=== PATIENT | female | born 1940 | race Caucasian/White ===

== ENCOUNTER → 2016-03-06 | Outpatient (REF) | payer MEDICARE, MEDICAID ==
[2016-03-06 14:11] LABS: BASO % 0.5 % (0.0-1.0); EOS # 0.1 K/mm3 (0.0-0.50); EOS % 1.8 % (0.0-3.0); LARGE UNSTAINED CELL # 0.1 K/mm3 (0.0-0.4); LARGE UNSTAINED CELL % 1.3 % (0.0-4.0); LYMPH # 1.7 K/mm3 (1.5-4.5); LYMPH % 22.7 % (24.0-44.0); MEAN CORPUSCULAR HEMOGLOBIN 30.9 pg (27.0-33.0); MEAN CORPUSCULAR HGB CONC 33.7 g/dl (32.0-36.5); MEAN CORPUSCULAR VOLUME 91.8 fl (80.0-96.0); MONO # 0.4 K/mm3 (0.0-0.8); NEUTROPHILS # 5.3 K/mm3 (1.8-7.7); NEUTROPHILS % 68.9 % (36.0-66.0); PLATELET COUNT, AUTOMATED 306 k/mm3 (150-450); RED CELL DISTRIBUTION WIDTH 13.1 % (11.5-14.5); WHITE BLOOD COUNT 7.7 K/mm3 (4.0-10.0)
[2016-03-06 14:59] LABS: ALBUMIN 3.9 GM/DL (3.2-5.2); ALBUMIN/GLOBULIN RATIO 1.15 (1.00-1.93); ALKALINE PHOSPHATASE 120 U/L (45-117); ALT/SGPT 26 U/L (12-78); ANION GAP 9 MEQ/L (8-16); AST/SGOT 17 U/L (15-37); BILIRUBIN,TOTAL 0.3 MG/DL (0.2-1.0); BLOOD UREA NITROGEN 19 MG/DL (7-18); CARBON DIOXIDE LEVEL 31 MEQ/L (21-32); CHLORIDE LEVEL 101 MEQ/L (98-107); CREATININE FOR GFR 0.86 MG/DL (0.55-1.02); GLOMERULAR FILTRATION RATE > 60.0 (>39); GLUCOSE, FASTING 87 MG/DL (83-110); POTASSIUM SERUM 4.4 MEQ/L (3.5-5.1); SODIUM LEVEL 141 MEQ/L (136-145); TOTAL PROTEIN 7.3 GM/DL (6.4-8.2)
== END ==
LOC: M SFHCPLAZ 11:38
PROVIDERS: ATTEND Family Medicine
DX: I10 Essential (primary) hypertension (principal); R73.01 Impaired fasting glucose; E55.9 Vitamin D deficiency, unspecified
CPT/HCPCS: 80053; 82306; 83036; 83970; 85025; G0463

== ENCOUNTER → 2016-07-22 | Outpatient (REF) | payer MEDICARE, MEDICAID ==
[2016-07-22 12:41] LABS: ALBUMIN 3.7 GM/DL (3.2-5.2); ALBUMIN/GLOBULIN RATIO 1.06 (1.00-1.93); ALKALINE PHOSPHATASE 120 U/L (45-117); ALT/SGPT 24 U/L (12-78); ANION GAP 8 MEQ/L (8-16); AST/SGOT 18 U/L (15-37); BILIRUBIN,TOTAL 0.4 MG/DL (0.2-1.0); BLOOD UREA NITROGEN 20 MG/DL (7-18); CALCIUM LEVEL 9.2 MG/DL (8.8-10.2); CARBON DIOXIDE LEVEL 29 MEQ/L (21-32); CHLORIDE LEVEL 102 MEQ/L (98-107); CHOLESTEROL LEVEL 196 MG/DL (<200); CREATININE FOR GFR 0.89 MG/DL (0.55-1.02); GLOMERULAR FILTRATION RATE > 60.0 (>39); GLUCOSE, FASTING 121 MG/DL (83-110); POTASSIUM SERUM 3.9 MEQ/L (3.5-5.1); SODIUM LEVEL 139 MEQ/L (136-145); TOTAL PROTEIN 7.2 GM/DL (6.4-8.2); TRIGLYCERIDES LEVEL 205 MG/DL (<150)
== END ==
LOC: M SFHCPLAZ 10:35
PROVIDERS: ATTEND Family Medicine
DX: R73.01 Impaired fasting glucose (principal); Z79.899 Other long term (current) drug therapy
CPT/HCPCS: 36415; 80053; 80061; 81001; 82043; 82550; 83036; 86140; G0463

== ENCOUNTER → 2016-10-01 | Outpatient (CLI) | payer MEDICARE, MEDICAID ==
[~2016-10-01] MED LIST: ASPI81TA85 PO; CALCTAB68 PO; DIOV320T PO; HYDR25TAB PO; LIPI20TA PO; PROZ20CA11 PO; VITA100072 PO; VITA200015 PO; ZYLO300T4 PO
--- NOTE | 2016-10-01 09:58 | REPMRS ---
Patient History The patient states she has not had a clinical breast exam in over a year. Patient is postmenopausal. Family history of pancreatic cancer in paternal uncle at age 50 or over. Benign stereotatic breast biopsy of the right breast, 2009. Digital Woman Screen Mammo: October 01, 2016 - Exam #: [id number] Bilateral CC and MLO view(s) were taken. Technologist: Lubna Harmon Technologist Prior study comparison: October 05, 2015, digital woman screen mammo performed at [facility]. September 04, 2014, digital woman screen mammo performed at [facility]. FINDINGS: There are scattered fibroglandular densities. There has been no change in the appearance of the mammogram from the prior studies. There is a mild amount of residual fibroglandular tissue which is fairly symmetric. There is no interval development of dominant mass, architectural distortion, or clustered microcalcification suggestive of malignancy. ASSESSMENT: BI-RADS/ACR category 1 mammogram. Negative. Recommendation Routine screening mammogram in 1 year (for women over age 40). This mammogram was interpreted with the aid of an FDA-approved computer-aided dectection system. Electronically Signed By: Riky Vann MD 10/01/16 0958
== END ==
LOC: M WHC 08:56
PROVIDERS: ATTEND Family Medicine
DX: Z12.31 Encounter for screening mammogram for malignant neoplasm of breast (principal); Z78.0 Asymptomatic menopausal state

== ENCOUNTER 2016-12-03 09:16 | Day surgery (SDC) | payer MEDICARE, MEDICAID ==
[~2016-12-03] VITALS: Ht 149.9 cm; Wt 93.0 kg
[~2016-12-03 09:16] MED LIST changes: +ACETAMINOPHEN 325 MG TAB PO PRN; +BSS with VANC/TOB/EPI for EYE CASES IR ONE; +CYCLOPENTOLATE 2% OPHTH SOLN 2ML BTL OS ONE; +LIDOCAINE 3.5 % 1ML OPHTH TOPICAL GEL OU ONE; +OFLOXACIN 0.3 % (OCUFLOX) OPTH SOL 5ML OS ONE; +PHENYLEPHRINE 2.5% OPHTH SOL 2ML OS ONE; +PROPARACAINE 0.5% OPHTH SOL 15ML OS PRN; +TROPICAMIDE 1% OPHTH SOLN 2ML OS ONE
[2016-12-03] MEDS ORDERED: AcetaZOLAMIDE 500 MG ER CAP PO ONE (09:30)
[2016-12-03] MEDS ORDERED: TRIMETHOBENZAMIDE 300 MG CAP PO PRN (09:30)
[2016-12-03] MEDS ORDERED: KETOROLAC 0.5% OPHTH SOLN OS ONE (09:30)
[2016-12-03] MEDS ORDERED: LIDOCAINE 1% SDV 5 ML VIAL As Ordered ONE (10:11)
[2016-12-03] MEDS ORDERED: POVIDONE-IODINE 5% OPHTH PREP SOL 30ML As Ordered ONE (10:11)
[2016-12-03] MEDS ORDERED: TRIAMCINOLONE PRES FR 40 MG/ML 1ML(TRIESENCE)(OR EYE ONLY)(J3300 PER 1MG) As Ordered ONE (10:11)
[2016-12-03] MEDS ORDERED: MOXIFLOXACIN IN BSS 0.25MG/0.25ML INTRACAMERAL INJ (OR EYE ONLY)(J2280) As Ordered ONE (10:12)
[2016-12-03] MEDS ORDERED: HEALON DUET (HEALON 10MG/ML 0.55ML & HEALON ENDOCOAT 30MG/ML 0.85ML) As Ordered ONE (10:12)
[2016-12-03] MEDS ORDERED: fentaNYL 100 MCG/2 ML INJECTION (J3010) As Ordered ONE (10:32)
[2016-12-03] MEDS ORDERED: MIDAZOLAM INJ 2 MG/2 ML VIAL (J2250) As Ordered ONE (10:32)
[2016-12-03 11:20] VITALS: BP 102/50
== END 2016-12-03 11:43 | disposition home or self-care (01) ==
LOC: M SDC 09:16
PROVIDERS: ATTEND Ophthalmology
DX: H25.9 Unspecified age-related cataract (principal); I10 Essential (primary) hypertension; E78.5 Hyperlipidemia, unspecified; G47.30 Sleep apnea, unspecified; Z79.82 Long term (current) use of aspirin; Z79.899 Other long term (current) drug therapy
CPT/HCPCS: 66984; J2250; J2280; J3010; J3300; V2632

== ENCOUNTER → 2017-04-03 | Outpatient (REF) | payer MEDICARE ==
[2017-04-03 12:41] LABS: BASO # 0.1 10^3/uL (0.0-0.2); BASO % 0.7 % (0.0-1.0); EOS # 0.1 10^3/uL (0.0-0.50); EOS % 1.5 % (0.0-3.0); HEMATOCRIT 40.2 % (36.0-47.0); HEMOGLOBIN 13.2 g/dl (12.0-16.0); IMMATURE GRANULOCYTE % 0.4 % (0-3.0); LYMPH # 1.9 10^3/uL (1.5-4.5); MEAN CORPUSCULAR HEMOGLOBIN 30.2 pg (27.0-33.0); MEAN CORPUSCULAR HGB CONC 32.8 g/dl (32.0-36.5); MONO # 0.8 10^3/uL (0.0-0.8); MONO % 8.1 % (0.0-5.0); NEUTROPHILS # 6.4 10^3/uL (1.8-7.7); NEUTROPHILS % 69.3 % (36.0-66.0); PLATELET COUNT, AUTOMATED 306 10^3/uL (150-450); RED BLOOD COUNT 4.37 10^6/uL (4.00-5.40); RED CELL DISTRIBUTION WIDTH 13.3 % (11.5-14.5); WHITE BLOOD COUNT 9.2 10^3/uL (4.0-10.0)
[2017-04-03 12:43] LABS: HEMATOCRIT 40.2 % (36.0-47.0)
[2017-04-03 12:49] LABS: APPEARANCE, URINE HAZY (CLEAR); BACTERIA, URINE AUTO NEGATIVE (NEGATIVE); BILIRUBIN, URINE AUTO NEGATIVE (NEGATIVE); BLOOD, URINE BLOOD NEGATIVE (NEGATIVE); COLOR, URINE YELLOW (YELLOW); GLUCOSE, URINE (UA) AUTO NEGATIVE (NEGATIVE); KETONE, URINE AUTO TRACE mg/dL (NEGATIVE); LEUKOCYTE ESTERASE, URINE AUTO 1+ (NEGATIVE); NITRITE, URINE AUTO NEGATIVE (NEGATIVE); PROTEIN, URINE AUTO NEGATIVE (NEGATIVE); RBC, URINE AUTO 4 /HPF (0-3); SPECIFIC GRAVITY URINE AUTO 1.021 (1.002-1.035); SQUAMOUS EPITHELIAL CELL UR AU 0 /HPF (0-6); UROBILINOGEN, URINE AUTO 0.2 mg/dL (0.0-2.0); WBC, URINE AUTO 14 /HPF (0-3)
[2017-04-03 13:05] LABS: ALBUMIN/GLOBULIN RATIO 1.25 (1.00-1.93); ALKALINE PHOSPHATASE 125 U/L (45-117); ALT/SGPT 27 U/L (12-78); ANION GAP 8 MEQ/L (8-16); AST/SGOT 21 U/L (7-37); BILIRUBIN,TOTAL 0.5 MG/DL (0.2-1.0); BLOOD UREA NITROGEN 19 MG/DL (7-18); CALCIUM LEVEL 9.5 MG/DL (8.8-10.2); CARBON DIOXIDE LEVEL 30 MEQ/L (21-32); CHLORIDE LEVEL 101 MEQ/L (98-107); CREATININE FOR GFR 0.84 MG/DL (0.55-1.30); GLOMERULAR FILTRATION RATE > 60.0 (>39); GLUCOSE, FASTING 90 MG/DL (70-100); POTASSIUM SERUM 3.8 MEQ/L (3.5-5.1); SODIUM LEVEL 139 MEQ/L (136-145); TOTAL PROTEIN 7.2 GM/DL (6.4-8.2)
[2017-04-03 13:12] LABS: VITAMIN B12 LEVEL 1743 PG/ML (247-911)
[2017-04-03 13:18] LABS: MALB URINE SIEMENS 22.4 MG/L; MAU/CREAT RATIO 15.2 MCG/MG (0.0-30.0)
[2017-04-03 13:24] LABS: ESTIMATED AVERAGE GLUCOSE 131 MG/DL (60-110); HEMOGLOBIN A1c 6.2 %
[2017-04-03 14:40] LABS: PRETREATED FOLATE FOR RBCFOL 12.1 NG/ML; RBC FOLATE 632.1 NG/ML (280-791)
[2017-04-04 14:10] LABS: INSULIN LEVEL 13.4 uIU/mL (2.6-24.9)
== END ==
LOC: M SFHCPLAZ 10:39
DX: E53.8 Deficiency of other specified B group vitamins (principal); R73.01 Impaired fasting glucose
CPT/HCPCS: 83525

== ENCOUNTER 2017-07-15 05:52 | Day surgery (SDC) | payer MEDICARE, MEDICAID ==
[2017-07-15] MEDS ORDERED: SLF 3 ML SYR IV ×2 (06:00)
[2017-07-15] MEDS ORDERED: PROPOFOL 200 MG/20 ML VIAL As Ordered (06:28)
[2017-07-15] MEDS ORDERED: fentaNYL 100 MCG/2 ML INJECTION (J3010) As Ordered (06:28)
[2017-07-15] MEDS: LIDOCAINE 3.5 % 1ML OPHTH TOPICAL GEL OU (06:54)
[2017-07-15] MEDS: LIDOCAINE 2% W/EPIN INJ 20ML **PRES FREE As Ordered (07:43)
[2017-07-15] MEDS: POVIDONE-IODINE 5% OPHTH PREP SOL 30ML As Ordered (07:44)
[2017-07-15] MEDS: SODIUM BICARBONATE 8.4% INJ 50MEQ 50 ML VIAL As Ordered (07:44)
[2017-07-15] MEDS: TOBRADEX OPHTH OINT 3.5 GM As Ordered (07:44)
[2017-07-15] MEDS: TETRACAINE 0.5% OPHTH SOLN 4ML As Ordered (08:11)
== END 2017-07-15 09:05 | disposition home or self-care (01) ==
LOC: M SDC 09:05
DX: H02.834 Dermatochalasis of left upper eyelid (principal); H02.831 Dermatochalasis of right upper eyelid; H02.403 Unspecified ptosis of bilateral eyelids; I10 Essential (primary) hypertension; E78.00 Pure hypercholesterolemia, unspecified; F41.9 Anxiety disorder, unspecified; G47.33 Obstructive sleep apnea (adult) (pediatric); L57.0 Actinic keratosis; M75.40 Impingement syndrome of unspecified shoulder; M17.0 Bilateral primary osteoarthritis of knee; M47.816 Spondylosis without myelopathy or radiculopathy, lumbar region; R73.01 Impaired fasting glucose; M85.80 Other specified disorders of bone density and structure, unspecified site; E55.9 Vitamin D deficiency, unspecified; E53.8 Deficiency of other specified B group vitamins; Z79.899 Other long term (current) drug therapy; Z79.82 Long term (current) use of aspirin; Z90.710 Acquired absence of both cervix and uterus
CPT/HCPCS: 15823

== ENCOUNTER 2017-09-04 09:45 | Emergency (ER) | payer MEDICARE, MEDICAID ==
[2017-09-04] MEDS: NORCO, ANEXSIA 5/325MG TABLET (HYDROcodone/ACETAMINOPHEN) PO (10:03)
[2017-09-04 11:42] LABS: BASO % 0.3 % (0.0-1.0); EOS # 0.2 10^3/uL (0.0-0.50); EOS % 1.6 % (0.0-3.0); HEMATOCRIT 38.8 % (36.0-47.0); HEMOGLOBIN 12.9 g/dl (12.0-15.5); IMMATURE GRANULOCYTE % 0.4 % (0-3.0); LYMPH # 2.3 10^3/uL (1.5-4.5); LYMPH % 24.3 % (24.0-44.0); MEAN CORPUSCULAR HEMOGLOBIN 30.5 pg (27.0-33.0); MEAN CORPUSCULAR HGB CONC 33.2 g/dl (32.0-36.5); MEAN CORPUSCULAR VOLUME 91.7 fl (80.0-96.0); MONO # 0.6 10^3/uL (0.0-0.8); MONO % 6.7 % (0.0-5.0); NEUTROPHILS # 6.2 10^3/uL (1.8-7.7); NEUTROPHILS % 66.7 % (36.0-66.0); PLATELET COUNT, AUTOMATED 288 10^3/uL (150-450); RED BLOOD COUNT 4.23 10^6/uL (4.00-5.40); WHITE BLOOD COUNT 9.3 10^3/uL (4.0-10.0)
[2017-09-04] MEDS: MORPHINE 2 MG/ML 1ML SYRINGE (J2270) IV ×2 (11:42→14:09)
[2017-09-04] MEDS: ONDANSETRON 4MG/2ML VIAL (J2405) IV (11:42)
[2017-09-04 12:09] LABS: ANION GAP 9 MEQ/L (8-16); BLOOD UREA NITROGEN 24 MG/DL (7-18); CALCIUM LEVEL 9.2 MG/DL (8.8-10.2); CARBON DIOXIDE LEVEL 27 MEQ/L (21-32); CHLORIDE LEVEL 106 MEQ/L (98-107); CREATININE FOR GFR 0.83 MG/DL (0.55-1.30); GLOMERULAR FILTRATION RATE > 60.0 (>39); GLUCOSE, FASTING 108 MG/DL (70-100); POTASSIUM SERUM 3.6 MEQ/L (3.5-5.1); SODIUM LEVEL 142 MEQ/L (136-145); URIC ACID 3.9 MG/DL (2.6-6.0)
[2017-09-04 12:14] LABS: ERYTHROCYTE SEDIMENTATION RATE 49 mm/hr (0-30)
== END 2017-09-04 16:11 | disposition home or self-care (01) ==
LOC: M ED 09:45
DX: M17.11 Unilateral primary osteoarthritis, right knee (principal); I10 Essential (primary) hypertension; M10.9 Gout, unspecified; F32.9 Major depressive disorder, single episode, unspecified; M51.36 Other intervertebral disc degeneration, lumbar region; Z79.82 Long term (current) use of aspirin; Z79.899 Other long term (current) drug therapy
CPT/HCPCS: J2405

== ENCOUNTER → 2017-09-30 | Outpatient (REF) | payer MEDICARE, MEDICAID ==
[2017-09-30 13:25] LABS: BASO % 0.2 % (0.0-1.0); EOS # 0.1 10^3/uL (0.0-0.50); EOS % 0.9 % (0.0-3.0); HEMATOCRIT 39.2 % (36.0-47.0); HEMOGLOBIN 13.2 g/dl (12.0-15.5); IMMATURE GRANULOCYTE % 0.2 % (0-3.0); LYMPH # 1.9 10^3/uL (1.5-4.5); LYMPH % 21.4 % (24.0-44.0); MEAN CORPUSCULAR HEMOGLOBIN 30.7 pg (27.0-33.0); MEAN CORPUSCULAR HGB CONC 33.7 g/dl (32.0-36.5); MEAN CORPUSCULAR VOLUME 91.2 fl (80.0-96.0); MONO # 0.6 10^3/uL (0.0-0.8); NEUTROPHILS # 6.3 10^3/uL (1.8-7.7); NEUTROPHILS % 70.3 % (36.0-66.0); PLATELET COUNT, AUTOMATED 278 10^3/uL (150-450); RETIC HEMOGLOBIN EQUIVALENT 35.3 pg (24-36); RETICULOCYTE # 70.1 10^9/L (17-77); RETICULOCYTE % 1.6 % (0.5-1.5)
[2017-09-30 13:54] LABS: C REACTIVE PROTEIN QUANTITATIV < 0.30 MG/DL (0.00-0.30); CHOLESTEROL LEVEL 181 MG/DL (<200); CHOLESTEROL RISK RATIO 3.693 (<5); CPK CREATINE PHOSPHOKINASE 57 U/L (26-192); FREE T4 0.96 NG/DL (0.76-1.46); HDL CHOLESTEROL 49 MG/DL (>40); LDL CHOLESTEROL 103.8 MG/DL (<100); NON-HDL-C 132 MG/DL; TRIGLYCERIDES LEVEL 141 MG/DL (<150)
[2017-10-01 14:16] LABS: INSULIN LEVEL 26.8 uIU/mL (2.6-24.9)
== END ==
LOC: M SFHCPLAZ 11:32
DX: E53.8 Deficiency of other specified B group vitamins (principal); E78.2 Mixed hyperlipidemia; R73.01 Impaired fasting glucose
CPT/HCPCS: 82550

== ENCOUNTER → 2017-09-30 | Outpatient (CLI) | payer MEDICARE, MEDICAID | LOC: M WHC 10:26 | DX: Z12.31 Encounter for screening mammogram for malignant neoplasm of breast (principal); Z78.0 Asymptomatic menopausal state; E53.8 Deficiency of other specified B group vitamins; E78.2 Mixed hyperlipidemia; R73.01 Impaired fasting glucose; Z92.89 Personal history of other medical treatment | CPT/HCPCS: 82550 ==

== ENCOUNTER → 2018-02-22 | Outpatient (REF) | payer MEDICARE, MEDICAID ==
[~2018-02-22] MED LIST changes: -ACETAMINOPHEN 325 MG TAB PO PRN; -BSS with VANC/TOB/EPI for EYE CASES IR ONE; -CYCLOPENTOLATE 2% OPHTH SOLN 2ML BTL OS ONE; -LIDOCAINE 3.5 % 1ML OPHTH TOPICAL GEL OU ONE; +NORCOTAB PO; -OFLOXACIN 0.3 % (OCUFLOX) OPTH SOL 5ML OS ONE; -PHENYLEPHRINE 2.5% OPHTH SOL 2ML OS ONE; -PROPARACAINE 0.5% OPHTH SOL 15ML OS PRN; +ROLLMIS2 XX; -TROPICAMIDE 1% OPHTH SOLN 2ML OS ONE; -ZYLO300T4 PO; +ZYLO300T6 PO
[2018-02-22 12:22] LABS: ALBUMIN 3.4 GM/DL (3.2-5.2); ALT/SGPT 22 U/L (12-78); BILIRUBIN,TOTAL 0.3 MG/DL (0.2-1.0); BLOOD UREA NITROGEN 19 MG/DL (7-18); CALCIUM LEVEL 8.5 MG/DL (8.8-10.2); CARBON DIOXIDE LEVEL 27 MEQ/L (21-32); CHLORIDE LEVEL 105 MEQ/L (98-107); CREATININE FOR GFR 0.83 MG/DL (0.55-1.30); GLOMERULAR FILTRATION RATE > 60.0 (>39); GLUCOSE, FASTING 95 MG/DL (70-100); MAGNESIUM LEVEL 1.6 MG/DL (1.8-2.4); POTASSIUM SERUM 3.5 MEQ/L (3.5-5.1); SODIUM LEVEL 141 MEQ/L (136-145); TOTAL PROTEIN 6.4 GM/DL (6.4-8.2); URIC ACID 3.8 MG/DL (2.6-6.0)
== END ==
LOC: M SFHCPLAZ 09:21
PROVIDERS: ATTEND Family Medicine
DX: I10 Essential (primary) hypertension (principal); R73.01 Impaired fasting glucose; M10.9 Gout, unspecified

== ENCOUNTER → 2018-03-19 | Outpatient (CLI) | payer MEDICARE, MEDICAID ==
[~2018-03-19] MED LIST changes: +ACET500T15 PO; +IRBE75TA5 PO
--- NOTE | 2018-03-19 09:59 | REP ---
Clinical: Preoperative assessment . Comparison: 04/03/2017 . Technique: PA and lateral. Findings: The mediastinum and cardiac silhouette are normal. Airway is patent and midline. The lung francisco are clear and without acute consolidation, effusion, or pneumothorax. The skeletal structures are intact and normal. Impression: 1. No acute cardiopulmonary process. Electronically Signed by Pietro Wilson MD 03/19/2018 09:51 A
[2018-03-19 10:15] LABS: HEMATOCRIT 39.9 % (36.0-47.0); HEMOGLOBIN 13.1 g/dl (12.0-15.5); MEAN CORPUSCULAR HEMOGLOBIN 30.1 pg (27.0-33.0); MEAN CORPUSCULAR HGB CONC 32.8 g/dl (32.0-36.5); MEAN CORPUSCULAR VOLUME 91.7 fl (80.0-96.0); PLATELET COUNT, AUTOMATED 299 10^3/uL (150-450); RED BLOOD COUNT 4.35 10^6/uL (4.00-5.40); WHITE BLOOD COUNT 8.3 10^3/uL (4.0-10.0)
[2018-03-19 10:24] LABS: INR 1.07
[2018-03-19 10:46] LABS: ALBUMIN 3.4 GM/DL (3.2-5.2); ALT/SGPT 21 U/L (12-78); BILIRUBIN,TOTAL 0.4 MG/DL (0.2-1.0); BLOOD UREA NITROGEN 12 MG/DL (7-18); CALCIUM LEVEL 8.9 MG/DL (8.8-10.2); CARBON DIOXIDE LEVEL 28 MEQ/L (21-32); CHLORIDE LEVEL 104 MEQ/L (98-107); CREATININE FOR GFR 0.86 MG/DL (0.55-1.30); GLOMERULAR FILTRATION RATE > 60.0 (>39); GLUCOSE, FASTING 111 MG/DL (70-100); POTASSIUM SERUM 3.9 MEQ/L (3.5-5.1); SODIUM LEVEL 140 MEQ/L (136-145)
[2018-03-19 11:51] LABS: ERYTHROCYTE SEDIMENTATION RATE 47 mm/hr (0-30)
--- NOTE | 2018-03-20 17:42 | ECGEPIP ---
Stationary ECG Study [facility] Test Date: 2018-03-19 Pat Name: SERA ARGUETA Department: Room: - Gender: F Garage Laborer: SUJATA : 1940 Requested By: Chandler Michelle Order Number: [id number] Reading MD: Maury Oconnor Measurements Intervals [place] Rate: 69 P: 56 RI: 152 QRS: 5 QRSD: 97 T: 61 QT: 436 QTc: 470 Interpretive Statements SINUS RHYTHM LOW QRS VOLTAGE IN PRECORDIAL LEADS MINIMAL ST DEPRESSION RIGHT VENTRICULAR CONDUCTION DELAY PRIOR TRACING ON 02/17/2014 AT 17:13:49, NO REMARKABLE CHANGES Electronically Signed On 03-20-2018 17:42:14 EST by Maury Oconnor
== END ==
LOC: M LAB 09:12
PROVIDERS: ATTEND Orthopaedic Surgery
DX: Z01.818 Encounter for other preprocedural examination (principal); M17.0 Bilateral primary osteoarthritis of knee

== ENCOUNTER 2018-04-14 09:53 | Inpatient (IN) | payer MEDICARE, MEDICAID ==
[~2018-04-14] VITALS: Ht 149.9 cm; Wt 89.8 kg
[~2018-04-14 09:53] MED LIST changes: +LR 1,000 ML IV ONE
[2018-04-14] MEDS ORDERED: MIDAZOLAM INJ 2 MG/2 ML VIAL (J2250) As Ordered ONE ×3 (10:50→13:18)
[2018-04-14] MEDS ORDERED: PROPOFOL 200 MG/20 ML VIAL As Ordered ONE (10:50)
[2018-04-14] MEDS ORDERED: LIDOCAINE 2% INJ 100 MG/5 ML SDV (FOR ANES.) As Ordered ONE (10:51)
[2018-04-14] MEDS ORDERED: fentaNYL 100 MCG/2 ML INJECTION (J3010) As Ordered ONE ×2 (10:51→11:15)
[2018-04-14] MEDS ORDERED: ceFAZolin 1GM INJ (J0690 PER 500MG) As Ordered ONE (11:27)
[2018-04-14] MEDS ORDERED: BUPIVACAINE LIPOSOME/PF 1.3% 20ML VIAL (13.3MG/ML)(EXPAREL)(C9290 PER1MG) As Ordered ONE (11:27)
[2018-04-14] MEDS ORDERED: TRANEXAMIC ACID 100 MG/ML 10ML VIAL As Ordered ONE (11:27)
[2018-04-14] MEDS ORDERED: EPINEPHrine INJ 1 MG/ML 1ML AMP As Ordered ONE (11:27)
[2018-04-14] MEDS: fentaNYL 100 MCG/2 ML INJECTION (J3010) IV PRN ×2 (11:30→11:32)
[2018-04-14] MEDS: MIDAZOLAM INJ 2 MG/2 ML VIAL (J2250) IV PRN ×2 (11:31→11:33)
--- NOTE | 2018-04-14 11:40 | IPN ---
DATE: 04/14/2018 The patient is seen and examined. She wished to go ahead with a right total knee arthroplasty. She has had significant pain that she has not been able to tolerate and she understands the nature of the procedure and the risks of bleeding, infection, damage to nerves, vessels, persistent pain, wear, loosening, blood clots, medical problems, and among others. A preop clearance was obtained.
[2018-04-14] MEDS ORDERED: PHENYLephrine HCL 500 MCG/5 ML (100MCG/ML) SYRINGE (J2370) As Ordered ONE ×2 (12:32→12:36)
[2018-04-14] MEDS ORDERED: BUPIVACAINE/DEXTROSE 0.75% 2 ML AMP As Ordered ONE (12:33)
[2018-04-14] MEDS ORDERED: ePHEDrine SULFATE 25 MG/5 ML(5MG/ML) SYRINGE As Ordered ONE (13:13)
[2018-04-14] MEDS ORDERED: ONDANSETRON 4MG/2ML VIAL (J2405) As Ordered ONE (13:47)
[2018-04-14] MEDS ORDERED: fentaNYL 100 MCG/2 ML INJECTION (J3010) IV PRN (14:00)
[2018-04-14] MEDS ORDERED: LR 1,000 ML IV SCH (14:00)
[2018-04-14] MEDS ORDERED: ACETAMINOPHEN TAB 650MG DOSE (2X325MG) PO PRN (14:00)
[2018-04-14] MEDS ORDERED: PILL CRUSHER/CUTTER 1 EACH XX PRN (14:00)
[2018-04-14] MEDS ORDERED: ONDANSETRON 4MG/2ML VIAL (J2405) IV PRN ×2 (14:00)
[2018-04-14] MEDS ORDERED: MORPHINE 4 MG/ML 1ML VIAL/SYRINGE (J2270) IV PRN (14:00)
[2018-04-14] MEDS ORDERED: MORPHINE 10 MG/ML 1ML VIAL (J2270) IV PRN (14:00)
[2018-04-14] MEDS ORDERED: PERCOCET 5MG/325MG TAB PO PRN (14:00)
[2018-04-14] MEDS ORDERED: FLEET ENEMA PR PRN (14:00)
[2018-04-14 14:45] VITALS: BP 148/85
--- NOTE | 2018-04-14 14:47 | REP ---
AP LATERAL RIGHT KNEE, TWO VIEWS: HISTORY: Knee replacement. The patient is status post right total knee replacement. There is no acute fracture or dislocation. Subcutaneous air and surgical lori are present in the overlying soft tissue. IMPRESSION: The patient is status post right total knee replacement. There is anatomic alignment. Electronically Signed by Monty Pizano MD 04/14/2018 02:49 P
[2018-04-14 15:15] VITALS: BP 130/68
[2018-04-14 16:15] VITALS: BP 132/72
[2018-04-14 17:15] VITALS: BP 126/65
[2018-04-14] MEDS: ALLOPURINOL 300 MG TAB PO SCH (18:06)
[2018-04-14] MEDS: ATORVASTATIN 20 MG TAB PO SCH (18:06)
[2018-04-14] MEDS: LR 1,000 ML IV SCH (18:07)
[2018-04-14] MEDS: VITAMIN D 1,000 INTERNATIONAL UNITS TABLET PO SCH (18:07)
[2018-04-14] MEDS: ASPIRIN 81 MG ENTERIC TAB PO SCH (18:07)
[2018-04-14] MEDS: FLUoxetine 20 MG CAP PO SCH (18:07)
[2018-04-14 18:15] VITALS: BP 129/68
[2018-04-14] MEDS: MORPHINE 4 MG/ML 1ML VIAL/SYRINGE (J2270) IV PRN ×2 (18:54→22:30)
[2018-04-14 22:00] VITALS: BP 150/88
[2018-04-15 02:00] VITALS: BP 132/79
[2018-04-15] MEDS: LR 1,000 ML IV SCH (03:20)
[2018-04-15] MEDS: MORPHINE 4 MG/ML 1ML VIAL/SYRINGE (J2270) IV PRN (04:34)
[2018-04-15 06:00] VITALS: BP 141/67
[2018-04-15 06:38] LABS: HEMATOCRIT 34.7 % (36.0-47.0); HEMOGLOBIN 11.5 g/dl (12.0-15.5); MEAN CORPUSCULAR HEMOGLOBIN 29.9 pg (27.0-33.0); MEAN CORPUSCULAR HGB CONC 33.1 g/dl (32.0-36.5); MEAN CORPUSCULAR VOLUME 90.4 fl (80.0-96.0); PLATELET COUNT, AUTOMATED 288 10^3/uL (150-450); RED BLOOD COUNT 3.84 10^6/uL (4.00-5.40)
[2018-04-15] MEDS: ACETAMINOPHEN 500 MG TAB PO SCH ×3 (06:43→21:28)
[2018-04-15 07:06] LABS: BLOOD UREA NITROGEN 17 MG/DL (7-18); CALCIUM LEVEL 8.7 MG/DL (8.8-10.2); CARBON DIOXIDE LEVEL 29 MEQ/L (21-32); CHLORIDE LEVEL 103 MEQ/L (98-107); CREATININE FOR GFR 0.86 MG/DL (0.55-1.30); GLOMERULAR FILTRATION RATE > 60.0 (>39); GLUCOSE, FASTING 115 MG/DL (70-100); POTASSIUM SERUM 3.8 MEQ/L (3.5-5.1); SODIUM LEVEL 140 MEQ/L (136-145)
--- NOTE | 2018-04-15 07:44 | RO ---
DATE OF PROCEDURE: 04/14/2018 PREOPERATIVE DIAGNOSIS: Right knee osteoarthritis. POSTOPERATIVE DIAGNOSIS: Right knee osteoarthritis. PROCEDURE: Right total knee arthroplasty using an Attune size4 femur, size 3 tibia, 6 polyethylene, 32 patellar button. This is a posterior stabilized knee rotating platform. SURGEON: Chandler Michelle MD TRAFFIC RATE ANALYST: VINNY Mcdonald ANESTHESIA: Spinal ESTIMATED BLOOD LOSS: Less than 50. COMPLICATIONS: None. INDICATIONS: This is a 77-year-old woman has had gradually worsening knee pain. She was not able to tolerate it and wished to go ahead with a knee replacement. She has advanced arthritis. She understood the nature of this, the risks of bleeding, infection, damage to nerves, vessels, persistent pain, wear loosening, blood clots, medical problems, , among others. She had tried multiple conservative things. DESCRIPTION OF PROCEDURE: The patient was taken to the operating room, placed supine position after spinal anesthesia was induced. The right lower extremity was prepped and draped the usual sterile fashion. Time-out was performed. Tourniquet was deflated and a longitudinal incision was made over the anterior aspect the knee. Sharp dissection was carried down through subcutaneous tissue. I then performed a medial parapatellar arthrotomy and a medial release per routine, removed any osteophytes. Then, used a canal initiating reamer on the femoral side followed by the intramedullary guide set at 5 degrees of valgus and a 9 mm thickness cut. This was pinned in place by the mobile sales assistant and then the cutting block was secured. I also removed the cutting block 2 mm proximal because she did have a flexion contracture. A saw was used to remove the bone. I then sized to be a 4, pinned this in place on the end of the femur and the cutting block was secured size 4 and the remaining cuts were made protecting soft tissues. I then released the attachment just on the anterior aspect the posterior cruciate ligament (PCL) so I could place the PCL retractor and the retractors were placed around the tibial side. The tibial alignment guide was placed in the appropriate amount of valgus and posterior slope and the proximal tibia cut was made about 4 mm off the low side, which was the medial side. I removed the excess bone. It was evident that the PCL was now deficient and I think largely due to her flexion contracture and deformity. So I decided go ahead with a box cut. I did use the tibial sided retractor to protect the tibial surface. The box cut was placed, secured in place and the remaining three cuts were made removing the bone. I also used a franchise consultant on either side of the knee and removed soft tissue and osteophytes from either side. I prepared the tibia. A size 3 tray fit very nicely. This was pinned in place, drilled, broached and then the trial components were placed and the trial components fit very nicely. I used a spacer block and decided on a size 6 for the polyethylene. The knee was put through a range of motion after the trial components were placed and I was very pleased with the alignment stability. I did not have to do any further release. The patella was then freehand cut removing about 6 or 7 mm of bone. It was relatively small. Patella sized to be a 32. The drill holes were placed in the patella and on the end of the femur. Patella tracked very nicely. The mobile sales assistant prepared the bone cement in the modern technique on the back table. I irrigated the bony surfaces and dried them carefully. We cemented on the tibial tray, followed by the femoral component. Removed excess bone cement. Placed the polyethylene. Reduced the knee. Brought it out in extension and cemented on the patella. Held this in place with a clamp. We removed all excess bone cement, irrigated copiously as I had multiple times prior to this, and placed the Exparel solution in the deep tissue. Also placed the tranexamic acid (TXA). I then did a final deep irrigation, closed the deep layer with interrupted #1 Vicryl suture, followed by running Stratafix suture and a watertight closure was placed. I put the knee through range of motion after I was sure the cement had hardened and made sure that there was no clicking, catching and that the alignment was good, stability was excellent. I then irrigated and closed the subcu with #2-0 Vicryl, the skin with lori. Sterile dressing was applied. Tourniquet was deflated and she was taken to recovery room in stable condition. There were no known complications. The plan will be routine postop. The mobile sales assistant was instrumental in holding retractors and assisting in mixing the bone cement, assisting in wound closure, making one of the distal femoral cuts under my direct supervision.
[2018-04-15] MEDS: MIRALAX *UNIT DOSE* 17GM PACKET PO SCH (08:17)
[2018-04-15] MEDS: MOM 30ML SUSPENSION UDC PO SCH (08:17)
[2018-04-15] MEDS: ALLOPURINOL 300 MG TAB PO SCH (08:17)
[2018-04-15] MEDS: RIVAROXABAN 10 MG TAB (XARELTO) PO SCH (08:17)
[2018-04-15] MEDS: VITAMIN D 1,000 INTERNATIONAL UNITS TABLET PO SCH (08:18)
[2018-04-15] MEDS: FLUoxetine 20 MG CAP PO SCH (08:18)
[2018-04-15] MEDS: ATORVASTATIN 20 MG TAB PO SCH (08:18)
[2018-04-15] MEDS: ASPIRIN 81 MG ENTERIC TAB PO SCH (08:18)
[2018-04-15] MEDS: IRBESARTAN 150 MG TAB PO SCH (08:19)
[2018-04-15] MEDS ORDERED: TRAM50TA2 PO (08:39)
[2018-04-15] MEDS ORDERED: XARE10TA PO (08:39)
[2018-04-15] MEDS ORDERED: ACET-683 PO (08:44)
--- NOTE | 2018-04-15 09:44 | IPNPDOC ---
Subjective Date Seen The patient was seen on 04/15/18. Subjective Chief Complaint/HPI OA knee Events since last encounter s/p RIGHT knee TKA. Planned DC to [facility] in am. denies c/o. States pain is well controlled. Has been OOB General: Reports: Normal Appetite; Denies: Chills, Night Sweats, Fatigue, Malaise Cardiovascular: Denies: Chest Pain, Palpitations, Orthopnea, Paroxysmal Noc. Dyspnea, Edema, Lt Headedness, Other Symptoms Gastrointestinal: Denies: Nausea, Vomiting, Abdominal Pain, Diarrhea, Constipation Genitourinary: Denies: Dysuria, Frequency, Incontinence, Retention Objective Physical Examination General Exam: Positive: Alert, No Acute Distress Neck Exam: Positive: Supple; Negative: JVD, thyromegaly Chest Exam: Positive: Clear to auscultation, Normal air movement Heart Exam: Positive: Rate Normal, Regular Rhythm, Normal S1, Normal S2; Negative: Murmurs, Rubs Abdomen Exam: Positive: Normal bowel sounds, Soft; Negative: Tenderness, Hepatospenomegaly Extremity Exam: Positive: Normal pulses; Negative: Clubbing, Cyanosis, Edema Skin Exam: Positive: Nl turgor and temperature; Negative: Rash, Breakdown Psych Exam: Positive: Mental status NL, Mood NL, Oriented x 3 Assessment /Plan Problems (1) Knee pain Status: Acute Problem Text: s/p Right TKA. planned rehab at [facility]. dc in am. (2) HTN (hypertension) Status: Chronic Response to Treatment: Stable Discussed With: Patient Problem Text: On home dose of Irbesartan 75 mg 1/2 tab po bid. Add on home dose of HCTZ 12.5 mg po daily. (3) Depressive disorder Status: Chronic Response to Treatment: Stable Discussed With: Patient Problem Text: On home dose Fluoxetine 20 mg po daily (4) MINNIE on CPAP Status: Chronic Response to Treatment: Stable Discussed With: Patient Problem Text: encouraged to have CPAP while in hospital and [facility] (5) Hyperlipidemia Status: Chronic Response to Treatment: Stable Problem Text: Continu home dose atorvastatin 40 mg po daily Plan/VTE VTE Prophylaxis Ordered?: Yes (Xarelto) VS, I&O, 24H, Fishbone Vital Signs/I&O Vital Signs Date Time Temp Pulse Resp B/P (MAP) Pulse Ox O2 Delivery O2 Flow Rate FiO2 2/28/19 08:19 132/60 04/15/18 06:00 98.3 80 20 92 I&O- Last 24 Hours up to 6 AM 04/15/18 06:00 Intake Total 2540 ml Output Total 1699 ml Balance 841 ml Laboratory Data 24H LABS Laboratory Tests 2 04/15/18 06:08: Nucleated Red Blood Cells % (auto) 0.0, Anion Gap 8, Glomerular Filtration Rate > 60.0, Blood Urea Nitrogen 17, Creatinine 0.86, Sodium Level 140, Potassium Level 3.8, Chloride Level 103, Carbon Dioxide Level 29, Calcium Level 8.7L CBC/BMP Laboratory Tests 04/15/18 06:08 Red Blood Count 3.84 L, Mean Corpuscular Volume 90.4, Mean Corpuscular Hemoglobin 29.9, Mean Corpuscular Hemoglobin Concent 33.1, Red Cell Distribution Width 14.1, Calcium Level 8.7 L Nancy WattsP Apr 15, 2018 09:44
[2018-04-15 10:00] VITALS: BP 114/55
[2018-04-15] MEDS: hydroCHLOROthiazide 12.5 MG CAPSULE PO SCH (10:40)
[2018-04-15] MEDS: traMADol 50 MG TAB PO PRN ×3 (13:51→22:40)
[2018-04-15 14:00] VITALS: BP 117/66
[2018-04-15 22:00] VITALS: BP 132/64
[2018-04-16] MEDS: ACETAMINOPHEN 500 MG TAB PO SCH (05:26)
[2018-04-16] MEDS: traMADol 50 MG TAB PO PRN (05:27)
[2018-04-16 05:58] LABS: HEMATOCRIT 31.4 % (36.0-47.0); HEMOGLOBIN 10.3 g/dl (12.0-15.5); MEAN CORPUSCULAR HGB CONC 32.8 g/dl (32.0-36.5); MEAN CORPUSCULAR VOLUME 91.5 fl (80.0-96.0); PLATELET COUNT, AUTOMATED 245 10^3/uL (150-450); RED BLOOD COUNT 3.43 10^6/uL (4.00-5.40); WHITE BLOOD COUNT 12.8 10^3/uL (4.0-10.0)
[2018-04-16 06:00] VITALS: BP 114/58
[2018-04-16 06:22] LABS: BLOOD UREA NITROGEN 18 MG/DL (7-18); CALCIUM LEVEL 8.1 MG/DL (8.8-10.2); CARBON DIOXIDE LEVEL 31 MEQ/L (21-32); CHLORIDE LEVEL 106 MEQ/L (98-107); CREATININE FOR GFR 0.76 MG/DL (0.55-1.30); GLOMERULAR FILTRATION RATE > 60.0 (>39); GLUCOSE, FASTING 125 MG/DL (70-100); POTASSIUM SERUM 3.8 MEQ/L (3.5-5.1); SODIUM LEVEL 142 MEQ/L (136-145)
[2018-04-16] MEDS: MIRALAX *UNIT DOSE* 17GM PACKET PO SCH (08:17)
[2018-04-16] MEDS: RIVAROXABAN 10 MG TAB (XARELTO) PO SCH (08:18)
[2018-04-16] MEDS: FLUoxetine 20 MG CAP PO SCH (08:18)
[2018-04-16] MEDS: hydroCHLOROthiazide 12.5 MG CAPSULE PO SCH (08:18)
[2018-04-16] MEDS: VITAMIN D 1,000 INTERNATIONAL UNITS TABLET PO SCH (08:18)
[2018-04-16] MEDS: ASPIRIN 81 MG ENTERIC TAB PO SCH (08:18)
[2018-04-16] MEDS: ALLOPURINOL 300 MG TAB PO SCH (08:18)
[2018-04-16] MEDS: MOM 30ML SUSPENSION UDC PO SCH (08:18)
[2018-04-16] MEDS: ATORVASTATIN 20 MG TAB PO SCH (08:18)
[2018-04-16 08:19] VITALS: BP 105/52
[2018-04-16] MEDS: IRBESARTAN 150 MG TAB PO SCH (08:19)
[2018-04-16] MEDS ORDERED: CYANOCOBALAMIN 500 MCG TAB PO SCH (09:00)
--- NOTE | 2018-04-20 15:52 | DSES ---
DATE OF ADMISSION: 04/14/2018 DATE OF DISCHARGE: 04/16/2018 ADMITTING DIAGNOSIS: Osteoarthritis, right knee. OTHER DIAGNOSES: 1. Hypertension. 2. Depression. 3. Sleep apnea. 4. Elevated lipids. DISCHARGE DIAGNOSIS: Arthritis, right knee, status post right total knee arthroplasty. OPERATION PERFORMED: Right total knee arthroplasty. HISTORY: This a pleasant 77-year-old female patient with progressively worsening left knee pain and stiffness. She failed to improve with conservative management. She was admitted for elective knee replacement on the right side. HOSPITAL COURSE: The patient was admitted on day of surgery and underwent a right total knee arthroplasty, which was uneventful. She did well in the postoperative period. In terms of her right knee, though, she did struggle with the requirements of the physical therapy. Due to her struggles with physical therapy, it was thought best for her to be in a shelter facility for further intensive physical therapy, so she was discharged to the shelter facility. On day of discharge, her pain was controlled. She was weightbearing as tolerated on her right lower extremity. She will move her right knee to prevent stiffness. She use thromboembolic deterrent (MIKE) stockings for 30 days postoperatively for deep vein thrombosis (DVT) prophylaxis. She will also use Xarelto per the protocol for DVT prophylaxis. She will followup in our office in 10-14 days for surgical followup. She will resume her preoperative medications and diet. She was given instructions to include, but not limited to, wound monitoring activity limitations. Please refer to the medical record further detail.
== END 2018-04-16 10:45 | DRG 470 ==
LOC: M SDC 09:53 → M MS5PR 11:15 → EDSTATUS 12:00 → M MS5PR 14:35
PROVIDERS: ADMIT Orthopaedic Surgery; ATTEND Orthopaedic Surgery
PROC: 0SRC0J9 Replacement of Right Knee Joint with Synthetic Substitute, Cemented, Open Approach (ICD-10-PCS; principal; 2018-04-14 12:00)
DX: M17.11 Unilateral primary osteoarthritis, right knee (principal); I10 Essential (primary) hypertension; M10.9 Gout, unspecified; E66.9 Obesity, unspecified; Z79.899 Other long term (current) drug therapy; E53.8 Deficiency of other specified B group vitamins; G47.33 Obstructive sleep apnea (adult) (pediatric); M51.36 Other intervertebral disc degeneration, lumbar region

== ENCOUNTER → 2018-04-27 | Outpatient (REF) | payer MEDICARE, MEDICAID ==
[~2018-04-27] MED LIST changes: +ACET-683 PO; -LR 1,000 ML IV ONE; +TRAM50TA2 PO; +XARE10TA PO
[2018-04-27 10:34] LABS: HEMATOCRIT 31.8 % (36.0-47.0); HEMOGLOBIN 10.4 g/dl (12.0-15.5); MEAN CORPUSCULAR HEMOGLOBIN 29.7 pg (27.0-33.0); MEAN CORPUSCULAR HGB CONC 32.7 g/dl (32.0-36.5); MEAN CORPUSCULAR VOLUME 90.9 fl (80.0-96.0); PLATELET COUNT, AUTOMATED 368 10^3/uL (150-450); WHITE BLOOD COUNT 11.4 10^3/uL (4.0-10.0)
[2018-04-27 11:00] LABS: BLOOD UREA NITROGEN 16 MG/DL (7-18); CALCIUM LEVEL 8.7 MG/DL (8.8-10.2); CARBON DIOXIDE LEVEL 28 MEQ/L (21-32); CHLORIDE LEVEL 104 MEQ/L (98-107); CREATININE FOR GFR 0.73 MG/DL (0.55-1.30); GLOMERULAR FILTRATION RATE > 60.0 (>39); GLUCOSE, FASTING 99 MG/DL (70-100); POTASSIUM SERUM 3.8 MEQ/L (3.5-5.1); SODIUM LEVEL 140 MEQ/L (136-145)
== END ==
PROVIDERS: ATTEND Family Medicine
DX: Z47.1 Aftercare following joint replacement surgery (principal); Z96.651 Presence of right artificial knee joint; Z79.899 Other long term (current) drug therapy

== ENCOUNTER → 2018-05-11 | Outpatient (REF) | payer MEDICARE, MEDICAID ==
[2018-05-11 12:13] LABS: BASO % 0.3 % (0.0-1.0); EOS % 1.2 % (0.0-3.0); HEMOGLOBIN 12.1 g/dl (12.0-15.5); LYMPH # 2.4 10^3/uL (1.5-4.5); LYMPH % 23.2 % (24.0-44.0); MEAN CORPUSCULAR HEMOGLOBIN 29.9 pg (27.0-33.0); MEAN CORPUSCULAR HGB CONC 32.7 g/dl (32.0-36.5); MEAN CORPUSCULAR VOLUME 91.4 fl (80.0-96.0); MONO # 0.7 10^3/uL (0.0-0.8); MONO % 7.1 % (0.0-5.0); NEUTROPHILS # 6.9 10^3/uL (1.8-7.7); NEUTROPHILS % 67.6 % (36.0-66.0); PLATELET COUNT, AUTOMATED 389 10^3/uL (150-450); RED BLOOD COUNT 4.05 10^6/uL (4.00-5.40); WHITE BLOOD COUNT 10.2 10^3/uL (4.0-10.0)
[2018-05-11 12:14] LABS: EOS # 0.1 10^3/uL (0.0-0.50)
[2018-05-11 12:43] LABS: ALBUMIN 3.7 GM/DL (3.2-5.2); ALT/SGPT 17 U/L (12-78); BILIRUBIN,TOTAL 0.5 MG/DL (0.2-1.0); BLOOD UREA NITROGEN 20 MG/DL (7-18); CALCIUM LEVEL 9.3 MG/DL (8.8-10.2); CARBON DIOXIDE LEVEL 26 MEQ/L (21-32); CHLORIDE LEVEL 105 MEQ/L (98-107); CREATININE FOR GFR 0.84 MG/DL (0.55-1.30); GLOMERULAR FILTRATION RATE > 60.0 (>39); GLUCOSE, FASTING 95 MG/DL (70-100); NT-PRO BNP 213 PG/ML (<450); SODIUM LEVEL 139 MEQ/L (136-145); TOTAL PROTEIN 7.1 GM/DL (6.4-8.2); TROPONIN I < 0.02 NG/ML (< 0.10)
== END ==
LOC: M SFHCPLAZ 11:20
PROVIDERS: ATTEND Family Medicine
DX: I10 Essential (primary) hypertension (principal); E11.9 Type 2 diabetes mellitus without complications; L57.0 Actinic keratosis; M75.40 Impingement syndrome of unspecified shoulder; F32.9 Major depressive disorder, single episode, unspecified; M10.9 Gout, unspecified; M17.0 Bilateral primary osteoarthritis of knee; G47.00 Insomnia, unspecified; M47.816 Spondylosis without myelopathy or radiculopathy, lumbar region; E78.2 Mixed hyperlipidemia; G47.33 Obstructive sleep apnea (adult) (pediatric); M85.80 Other specified disorders of bone density and structure, unspecified site; E55.9 Vitamin D deficiency, unspecified; E53.8 Deficiency of other specified B group vitamins

== ENCOUNTER → 2018-06-15 | Outpatient (RCR) | payer MEDICARE, MEDICAID ==
[~2018-06-15] MED LIST changes: +HYDR-3715 PO; -NORCOTAB PO; +VITA100018 PO; -VITA100072 PO
== END ==
LOC: M PT 05-31 10:53
PROVIDERS: ATTEND Orthopaedic Surgery
DX: Z47.89 Encounter for other orthopedic aftercare (principal); M17.11 Unilateral primary osteoarthritis, right knee

== ENCOUNTER 2018-06-24 11:28 | Outpatient (RCR) | payer MEDICARE, MEDICAID | END 2018-07-16 | LOC: M PT 11:28 | PROVIDERS: ATTEND Orthopaedic Surgery | DX: Z47.89 Encounter for other orthopedic aftercare (principal); M17.11 Unilateral primary osteoarthritis, right knee ==

== ENCOUNTER → 2018-08-06 | Outpatient (REF) | payer MEDICARE, MEDICAID ==
[2018-08-06 13:41] LABS: ALBUMIN 3.4 GM/DL (3.2-5.2); ALT/SGPT 21 U/L (12-78); BILIRUBIN,TOTAL 0.3 MG/DL (0.2-1.0); BLOOD UREA NITROGEN 18 MG/DL (7-18); CALCIUM LEVEL 9.2 MG/DL (8.8-10.2); CARBON DIOXIDE LEVEL 29 MEQ/L (21-32); CHLORIDE LEVEL 106 MEQ/L (98-107); CREATININE FOR GFR 0.83 MG/DL (0.55-1.30); FREE T4 0.78 NG/DL (0.76-1.46); GLOMERULAR FILTRATION RATE > 60.0 (>39); GLUCOSE, FASTING 106 MG/DL (70-100); MAGNESIUM LEVEL 2.5 MG/DL (1.8-2.4); NT-PRO BNP 147 PG/ML (<450); POTASSIUM SERUM 3.8 MEQ/L (3.5-5.1); SODIUM LEVEL 143 MEQ/L (136-145); TOTAL PROTEIN 6.9 GM/DL (6.4-8.2)
== END ==
LOC: M SFHCPLAZ 09:44
PROVIDERS: ATTEND Family Medicine
DX: I10 Essential (primary) hypertension (principal); R73.01 Impaired fasting glucose

== ENCOUNTER → 2018-10-01 | Outpatient (CLI) | payer MEDICARE, MEDICAID ==
--- NOTE | 2018-10-01 11:51 | REPMRS ---
Patient History The patient states she has not had a clinical breast exam in over a year. Family history of pancreatic cancer at age 50 or over in paternal uncle. Benign stereotatic breast biopsy of the right breast, 2009. No Hormone Replacement Therapy Digital Woman Screen Mammo: October 01, 2018 - Exam #: [id number] Bilateral CC and MLO view(s) were taken. Technologist: Lubna Harmon, Technologist Prior study comparison: September 30, 2017, bilateral digital woman screen mammo performed at [facility]. October 01, 2016, digital woman screen mammo performed at [facility]. October 05, 2015, digital woman screen mammo performed at [facility]. FINDINGS: The breast tissue is almost entirely fat. There is a needle biopsy marker clip again noted on the right. Stable right breast nodules are seen. There has been no change in the appearance of the mammogram from the prior studies. There is no interval development of dominant mass, architectural distortion, or grouped microcalcification typical of malignancy. 3-D tomosynthesis shows no additional findings. Assessment: BI-RADS/ACR category 2 mammogram. Benign Findings. Recommendation Routine screening mammogram of both breasts in 1 year (for women over age 40). This patient's Lifetime Breast Cancer RIsk is estimated at 1.0%. This mammogram was interpreted with the aid of an FDA-approved computer-aided dectection system. Electronically Signed By: Klever Alonso MD 10/01/18 8146
== END ==
LOC: M WHC 10:14
PROVIDERS: ATTEND Family Medicine
DX: Z12.31 Encounter for screening mammogram for malignant neoplasm of breast (principal); Z80.0 Family history of malignant neoplasm of digestive organs

== ENCOUNTER → 2018-11-17 | Outpatient (CLI) | payer MEDICARE, MEDICAID ==
[~2018-11-17] MED LIST changes: +CALC1TAB63 PO
[2018-11-17 09:53] LABS: HEMATOCRIT 38.5 % (36.0-47.0); HEMOGLOBIN 12.7 g/dl (12.0-15.5); MEAN CORPUSCULAR HEMOGLOBIN 30.9 pg (27.0-33.0); MEAN CORPUSCULAR VOLUME 93.7 fl (80.0-96.0); PLATELET COUNT, AUTOMATED 274 10^3/uL (150-450); RED BLOOD COUNT 4.11 10^6/uL (4.00-5.40); WHITE BLOOD COUNT 8.2 10^3/uL (4.0-10.0)
[2018-11-17 10:04] LABS: INR 1.12; PROTHROMBIN TIME 14.1 SECONDS (11.8-14.0)
[2018-11-17 10:23] LABS: ALBUMIN 3.5 GM/DL (3.2-5.2); ALT/SGPT 24 U/L (12-78); BILIRUBIN,TOTAL 0.4 MG/DL (0.2-1.0); BLOOD UREA NITROGEN 24 MG/DL (7-18); CALCIUM LEVEL 9.4 MG/DL (8.8-10.2); CARBON DIOXIDE LEVEL 27 MEQ/L (21-32); CHLORIDE LEVEL 109 MEQ/L (98-107); CREATININE FOR GFR 0.88 MG/DL (0.55-1.30); GLOMERULAR FILTRATION RATE > 60.0 (>39); GLUCOSE, FASTING 125 MG/DL (70-100); POTASSIUM SERUM 4.1 MEQ/L (3.5-5.1); SODIUM LEVEL 144 MEQ/L (136-145); TOTAL PROTEIN 6.8 GM/DL (6.4-8.2)
[2018-11-17 10:24] LABS: ERYTHROCYTE SEDIMENTATION RATE 34 mm/hr (0-30)
--- NOTE | 2018-11-17 15:37 | REP ---
Chest x-ray: Two views. History: Left knee arthritis. Comparison chest x-ray: March 19, 2018. Findings: The lungs are symmetrically aerated and free of infiltrate. Heart is not enlarged. The thoracic aorta is tortuous and calcific. There are degenerative changes in the thoracic spine. The pleural angles are sharp. Pulmonary vasculature is not increased. Impression: No active cardiopulmonary disease. Electronically Signed by Jose Alonso MD 11/17/2018 04:07 P
--- NOTE | 2018-11-18 00:47 | ECGEPIP ---
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
== END ==
LOC: M LAB 09:20
PROVIDERS: ATTEND Orthopaedic Surgery
DX: Z01.818 Encounter for other preprocedural examination (principal)

== ENCOUNTER 2018-11-29 08:22 | Inpatient (IN) | payer MEDICARE, MEDICAID ==
--- NOTE | 2018-11-26 09:12 | HPE ---
DATE OF ANTICIPATED ADMISSION: 11/29/2018 ATTENDING PHYSICIAN: Dr. Chandler Michelle CHIEF COMPLAINT: Left knee pain and stiffness. HISTORY: This is a 78-year-old female patient with progressively worsening left knee pain and stiffness who has failed to improve with conservative treatment. She has continued pain with weightbearing activities in the left knee and has consented for left knee total arthroplasty with Dr. Chandler Michelle for her continued symptoms. ALLERGIES: NO KNOWN DRUG ALLERGIES. CURRENT MEDICATIONS: - vitamin D - Voltaren 1% gel - cyanocobalamin 500 mcg one p.o. daily - fluoxetine 40 mg one p.o. daily - allopurinol 300 mg one p.o. daily - aspirin 81 mg one p.o. daily - Tylenol 325 two by mouth as needed every 4 hours - irbesartan 75 mg half a tablet one by mouth twice a day - hydrochlorothiazide 25 mg half tablet p.o. daily - calcium 600 mg one p.o. daily - atorvastatin 40 mg one p.o. daily PAST MEDICAL HISTORY: Hypertension, bilateral knee osteoarthritis, osteoporosis, type 2 diabetes, diet-controlled, gout, obesity, allergic rhinitis , B12 deficiency, lumbar degenerative disk disease, obstructive sleep apnea. PAST SURGICAL HISTORY: Right breast biopsy, bilateral carpal tunnel release, ROBERTO-BSO for non cancerous reason, right and left cataract removal, right total knee arthroplasty March 2018. FAMILY HISTORY: Noncontributory. SOCIAL HISTORY: The patient is a nonsmoker, does not use alcohol. REVIEW OF SYSTEMS: Denies fever, chills, chest pain, shortness of breath, nausea, vomiting, diarrhea. Reports discomfort in the left knee with weightbearing activities. PHYSICAL EXAMINATION: Vitals: Height 58.5 inches, weight 200 pounds, temperature 98.7, blood pressure 127/89, pulse 62, respirations 10. Normocephalic, atraumatic. Neck is supple and nontender with no lymphadenopathy or jugular venous distention (JVD). S1, S2 auscultated with no murmurs, rubs or gallops. Breathing is nonlabored. Abdomen is soft, nontender. Left lower extremity shows intact range of motion. There is no overlying rashes, skin is intact. She has intact neurovascular status is a left lower extremity. 2+ dorsalis pedis, posterior tibialis pulses. Chest x-ray: No active cardiopulmonary disease. EKG: Sinus rhythm with low QRS voltage in precordial leads and nonspecific T-wave abnormalities. LABORATORY DATA: PT 14.1, INR 1.12, white count 8.2, red count 4.11, hemoglobin 12.7, hematocrit 38.5, ESR 14, BUN 24, creatinine 0.88. Medical optimization by Dr. Maher reviewed today on chart. IMPRESSION: Symptomatic left knee degenerative changes. PLAN: Consented for left total knee arthroplasty with Dr. Chandler Michelle.
[2018-11-29] VITALS (7 sets, daily range): BP systolic 111–148; BP diastolic 66–86
[~2018-11-29] VITALS: Ht 149.9 cm; Wt 90.6 kg
[~2018-11-29 08:22] MED LIST changes: +LIDOCAINE 2% INJ 100 MG/5 ML SDV (FOR ANES.) As Ordered ONE; +LR 1,000 ML IV ONE; +MIDAZOLAM INJ 2 MG/2 ML VIAL (J2250) IV SCH; +ONDANSETRON 4MG/2ML VIAL (J2405) As Ordered ONE; +PROPOFOL 200 MG/20 ML VIAL As Ordered ONE; +ceFAZolin SOD 2 GM in IV 1 EA IV ONE; +fentaNYL 100 MCG/2 ML INJECTION (J3010) As Ordered ONE; +fentaNYL 100 MCG/2 ML INJECTION (J3010) IV SCH
--- NOTE | 2018-11-29 09:21 | IPN ---
DATE: 11/29/2018 Patient seen and examined. She wishes to go ahead with a left total knee arthroplasty. She is aware of the nature and the risks including bleeding, infection, damage to nerves, vessels, persistent pain, wear loosening, blood clots, medical problems, , among others. She has been through a fairly recent knee replacement on the other side.
[2018-11-29] MEDS ORDERED: TRANEXAMIC ACID 100 MG/ML 10ML VIAL As Ordered ONE (09:53)
[2018-11-29] MEDS ORDERED: EPINEPHrine INJ 1 MG/ML 1ML AMP As Ordered ONE (09:53)
[2018-11-29] MEDS ORDERED: ceFAZolin 1GM INJ (J0690 PER 500MG) As Ordered ONE (09:53)
[2018-11-29] MEDS ORDERED: BUPIVACAINE LIPOSOME/PF 1.3% 20ML VIAL (13.3MG/ML)(EXPAREL)(C9290 PER1MG) As Ordered ONE (09:53)
[2018-11-29] MEDS ORDERED: MIDAZOLAM INJ 2 MG/2 ML VIAL (J2250) As Ordered ONE (10:02)
[2018-11-29] MEDS ORDERED: fentaNYL 100 MCG/2 ML INJECTION (J3010) As Ordered ONE (10:02)
[2018-11-29] MEDS ORDERED: PHENYLephrine HCL 500 MCG/5 ML (100MCG/ML) SYRINGE (J2370) As Ordered ONE (11:24)
[2018-11-29] MEDS ORDERED: ePHEDrine SULFATE 25 MG/5 ML(5MG/ML) SYRINGE As Ordered ONE (11:24)
[2018-11-29] MEDS ORDERED: PROPOFOL 200 MG/20 ML VIAL As Ordered ONE ×2 (11:24→12:05)
[2018-11-29] MEDS ORDERED: ROPIvacaine 0.5% 30 ML INJECTION (J2795 PER 1MG) ONE (12:45)
[2018-11-29] MEDS ORDERED: EPINEPHrine INJ 1 MG/ML 1ML AMP ONE (12:45)
[2018-11-29] MEDS ORDERED: MORPHINE 4 MG/ML 1ML VIAL/SYRINGE (J2270) IV PRN ×2 (13:00)
[2018-11-29] MEDS ORDERED: FLEET ENEMA PR PRN (13:00)
[2018-11-29] MEDS ORDERED: fentaNYL 100 MCG/2 ML INJECTION (J3010) IV PRN (13:00)
[2018-11-29] MEDS: LR 1,000 ML IV SCH (13:00)
[2018-11-29] MEDS ORDERED: LR 1,000 ML IV SCH (13:00)
[2018-11-29] MEDS ORDERED: ONDANSETRON 4MG/2ML VIAL (J2405) IV PRN ×2 (13:00)
[2018-11-29] MEDS ORDERED: NORCO, ANEXSIA 5/325MG TABLET (HYDROcodone/ACETAMINOPHEN) PO PRN (13:00)
[2018-11-29] MEDS ORDERED: PERCOCET 5MG/325MG TAB PO PRN (13:00)
[2018-11-29] MEDS ORDERED: METOCLOPRAMIDE INJ 10MG/2ML VIAL (J2765) IV PRN (13:00)
[2018-11-29] MEDS ORDERED: ACETAMINOPHEN TAB 650MG DOSE (2X325MG) PO PRN (13:00)
--- NOTE | 2018-11-29 13:11 | RO ---
DATE OF PROCEDURE: 11/29/2018 PREOPERATIVE DIAGNOSIS: Left knee osteoarthritis. POSTOPERATIVE DIAGNOSIS: Left knee osteoarthritis. PROCEDURE: Left total knee arthroplasty using DePuy Attune rotating platform posterior stabilized size 3 femur and size 3 tibia, 5 polyethylene tray, 32 patellar button. SURGEON: Chandler Michelle MD CORN DETASSELER: VINNY Posey ANESTHESIA: Spinal. ESTIMATED BLOOD LOSS: Less than 50. COMPLICATIONS: None. PROCEDURE: The patient was taken to taken to the operating room and placed in supine position after spinal anesthesia was induced. The left lower extremity was prepped and draped in the usual sterile fashion. Time-out was performed. A longitudinal incision was made over the anterior aspect of the knee. Sharp dissection was carried down through subcutaneous tissue. A medial parapatellar arthrotomy was performed per routine. Everted the patella. Removed some osteophytes and flexed the knee up. Used the canal initiating reamer on the femoral side, followed by the intramedullary guide. This was set at 5 degrees of valgus and 9 mm cut. This was pinned in place and I moved the cutting black block back two more millimeters due to a flexion contracture. The patient did have significant preoperative stiffness and she is aware that, that was often predictive of post-op motion. Once the distal femoral cut was made, I then sized the femur to be a 3. Drill holes were placed at the end of the femur, cutting block secured and remaining cuts were made. I prepared the tibia. Tibial alignment guide was then placed in appropriate amount of valgus and posterior slope and pinned this in place and made the proximal tibia cut removing about 4 mm off the low side. I then used a street engineer to remove soft tissue from either side of the knee and osteophytes. She did have an intact posterior cruciate ligament (PCL). So, I went ahead and prepared the tibial surface. I had also used a spacer block and felt that a 5 or 6 would be appropriate. I prepared the sulcus cut on the femur and I had trialed the cruciate-retaining system and felt that it was too tight in flexion. The poly was spitting out and there was not adequate roll back. The PCL cutting guide was then secured on the femur and the remaining three cuts were made. I felt this would improve the range of motion. I then resized and retried the components and a size 5 polyethylene fit very nicely. We had excellent extension and excellent stability in flexion/extension. Excellent alignment. I then freehand cut the patella removing about 7 mm of bone. Drilled the patella and the femur and the 32 patellar button tracked very nicely. The assistant manager pt prepared the bone cement. I irrigated copiously, injected the Exparel in the deep tissues. I then dried the bony surfaces, cemented on the tibia, followed by the femur. The polyethylene was then inserted, which was a 5 thickness. The patellar button was cemented on. I removed all excess bone cement. I then irrigated copiously, placed the tranexamic acid (TXA) in the deep tissues and repaired the deep layer with #1 Vicryl suture, followed by running Stratafix suture. The patellar clamp was removed once cement was hard. Final deep irrigation was performed before I finished the final deep closure. I then irrigated, closed subcu with #2-0 Vicryl and the skin with lori. A tourniquet was deflated. Sterile dressing was applied. She was taken to recovery room in stable condition. There were no known complications. Plan be routine post-op. The assistant manager pt was instrumental in holding retractors, assisted in mixing the bone cement and in wound closure.
--- NOTE | 2018-11-29 13:32 | REP ---
LEFT KNEE: Two views. HISTORY: Postop evaluation. FINDINGS: The patient is status post left knee arthroplasty. Anterior skin lori are seen. Periarticular soft tissue swelling and soft tissue emphysema are seen. Arthroplasty components appear well aligned with respect to each other and their [place] bones. IMPRESSION: Status post left knee arthroplasty. Electronically Signed by Jose lAonso MD 11/29/2018 01:57 P
[2018-11-29] MEDS: NORCO, ANEXSIA 5/325MG TABLET (HYDROcodone/ACETAMINOPHEN) PO PRN ×2 (15:21→18:55)
[2018-11-29] MEDS: ceFAZolin SOD 2 GM in IV 1 EA IV SCH (18:54)
[2018-11-29] MEDS: MORPHINE 15 MG SA TAB PO SCH (19:58)
[2018-11-29] MEDS ORDERED: GLUCAGON FOR INJ 1 MG VIAL (J1610) SC PRN (20:00)
[2018-11-29] MEDS ORDERED: DEXTROSE 50% 50 ML SYRINGE IV PRN (20:00)
[2018-11-29] MEDS ORDERED: GLUCOSE 4 GM CHEW TABLET PO PRN (20:00)
--- NOTE | 2018-11-29 20:01 | CR.PDOC ---
General Date of Consultation: Nov 29, 2018 Consultation REASON FOR CONSULTATION/CHIEF COMPLAINT: Physical evaluation HISTORY OF PRESENT ILLNESS: Patient 78 years old female with past medical histor y of Hypertension, bilateral knee osteoarthritis, osteoporosis, type 2 diabetes, diet-controlled, gout, obesity, allergic rhinitis , B12 deficiency, lumbar degenerative disk disease, obstructive sleep apnea presented hospital for planned left knee replacement. The surgery was done on 11/29/18. Patient tolerated surgery well. Patient denies fever, chills, nausea, shortness of breath, palpitations, vomiting, diarrhea or dysuria ALLERGIES: Please see below. HOME MEDICATIONS: Please see below. PAST MEDICAL HISTORY:Hypertension, bilateral knee osteoarthritis, osteoporosis, type 2 diabetes, diet-controlled, gout, obesity, allergic rhinitis , B12 deficiency, lumbar degenerative disk disease, obstructive sleep apnea. PAST SURGICAL HISTORY: Right breast biopsy, bilateral carpal tunnel release, ROBERTO-BSO for non cancerous reason, right and left cataract removal, right total knee arthroplasty March 2018. FAMILY HISTORY: Mother: from skin cancer SOCIAL HISTORY: Tobacco use: Negative ETOH: Negative Illicit drug use: Negative IV drug use: Negative REVIEW OF SYSTEMS: 10 point review of system is negative except listed above PHYSICAL EXAMINATION: VITAL SIGNS: Please see below. Normocephalic, atraumatic. Neck is supple and nontender with no lymphadenopathy or jugular venous distention (JVD). S1, S2 auscultated with no murmurs, rubs or gallops. Breathing is nonlabored. Abdomen is soft, nontender. Extremity: Dressing intact on the left knee, no cyanosis, pulses preserved bilaterally on lower extremities LABORATORY DATA: Please see below. ASSESSMENT/PLAN: Patient 78 years old female with past medical history of Hypertension, bilateral knee osteoarthritis, osteoporosis, type 2 diabetes, diet-controlled, gout, obesity, allergic rhinitis , B12 deficiency, lumbar d egenerative disk disease, obstructive sleep apnea presented hospital for planned left knee replacement. The surgery was done on 11/29/18. Status post left knee replacement Anticoagulation per surgical team Continue pain management Hypertension Blood pressures under control Continue home regimen Obstructive sleep apnea I recommended to bring CPAP from home Diabetes Insulin sliding scale Diabetes diet B12 deficiency Continue B12 vitamin supplementation Vital Signs/I&O Vital Signs Date Time Temp Pulse Resp B/P (MAP) Pulse Ox O2 Delivery O2 Flow Rate FiO2 11/29/18 18:55 18 10/14/19 17:23 97.9 75 140/79 (99) 95 11/29/18 16:12 2.0 Allergies Coded Allergies: No Known Allergies (Unverified , 11/29/18) Home Medications Scheduled Acetaminophen (Acetaminophen) 500 Mg Tab, 1,000 MG PO Q8H for 5 Days, #40 Allopurinol (Zyloprim) 300 Mg Tab, 300 MG PO DAILY, (Reported) Atorvastatin Calcium (Lipitor) 20 Mg Tab, 40 MG PO DAILY, (Reported) Calcium Carbonate/Vitamin D3 (Calcium 600-Vit D3 400 Tablet) 1 Each Tablet, 1 TAB PO DAILY, (Reported) Cholecalciferol (Vitamin D3) (Vitamin D3) 2,000 Unit Tab, 2,000 UNIT PO DAILY, (Reported) Cyanocobalamin (Vitamin B-12) (Vitamin B-12) 1,000 Mcg Tab, 1,000 MCG PO DAILY, (Reported) Fluoxetine HCl (Prozac) 20 Mg Cap, 40 MG PO DAILY, (Reported) Hydrochlorothiazide (Hydrochlorothiazide) 25 Mg Tab, 12.5 MG PO DAILY, (Reported) Irbesartan (Irbesartan) 75 Mg Tab, 0.5 TAB PO BID for 30 Days, #30 (Reported) JHON CARY DO Nov 29, 2018 20:01
[2018-11-29] MEDS ORDERED: LOSARTAN 25 MG TAB PO SCH (21:00)
[2018-11-30] MEDS: LR 1,000 ML IV SCH (02:20)
[2018-11-30] MEDS: NORCO, ANEXSIA 5/325MG TABLET (HYDROcodone/ACETAMINOPHEN) PO PRN ×5 (02:46→22:29)
[2018-11-30] MEDS: ceFAZolin SOD 2 GM in IV 1 EA IV SCH (02:46)
[2018-11-30 03:05] VITALS: BP 104/51
[2018-11-30 06:24] LABS: HEMATOCRIT 31.2 % (36.0-47.0); HEMOGLOBIN 10.2 g/dl (12.0-15.5); MEAN CORPUSCULAR HEMOGLOBIN 30.6 pg (27.0-33.0); MEAN CORPUSCULAR HGB CONC 32.7 g/dl (32.0-36.5); MEAN CORPUSCULAR VOLUME 93.7 fl (80.0-96.0); PLATELET COUNT, AUTOMATED 220 10^3/uL (150-450); RED BLOOD COUNT 3.33 10^6/uL (4.00-5.40); WHITE BLOOD COUNT 11.5 10^3/uL (4.0-10.0)
[2018-11-30 06:29] VITALS: BP 102/51
[2018-11-30 06:45] LABS: BLOOD UREA NITROGEN 19 MG/DL (7-18); CALCIUM LEVEL 8.6 MG/DL (8.8-10.2); CARBON DIOXIDE LEVEL 28 MEQ/L (21-32); CHLORIDE LEVEL 107 MEQ/L (98-107); GLOMERULAR FILTRATION RATE > 60.0 (>39); GLUCOSE, FASTING 134 MG/DL (70-100); MAGNESIUM LEVEL 1.6 MG/DL (1.8-2.4); POTASSIUM SERUM 3.9 MEQ/L (3.5-5.1); SODIUM LEVEL 140 MEQ/L (136-145)
[2018-11-30] MEDS: HumaLOG INSULIN (NovoLOG) PER UNIT SC SCH ×3 (07:30→17:12)
[2018-11-30] MEDS: ATORVASTATIN 20 MG TAB PO SCH (08:28)
[2018-11-30] MEDS: MOM 30ML SUSPENSION UDC PO SCH (08:28)
[2018-11-30] MEDS: ALLOPURINOL 300 MG TAB PO SCH (08:29)
[2018-11-30] MEDS: CYANOCOBALAMIN 500 MCG TAB PO SCH (08:29)
[2018-11-30] MEDS: FLUoxetine 20 MG CAP PO SCH (08:29)
[2018-11-30] MEDS: SENOKOT S TAB PO SCH ×2 (08:29→20:40)
--- NOTE | 2018-11-30 08:29 | IPNPDOC ---
Subjective Date Seen The patient was seen on 11/30/18. Subjective Chief Complaint/HPI Had fair amount of pain in left knee overnight. No other complaints Constitutional: Denies: Chills, Fever Pulmonary: Denies: Dyspnea, Cough Cardiovascular: Denies: Chest Pain, Palpitations, Orthopnea Gastrointestinal: Reports: Nausea (mild); Denies: Vomiting, Abdominal Pain, Diarrhea, Constipation Objective Physical Examination General Exam: Positive: Alert (sitting up in chair, bright, alert oriented, N AD), No Acute Distress Chest Exam: Positive: Clear to auscultation; Negative: Rales, Rhonchi, Wheezing Heart Exam: Positive: Rate Normal, Regular Rhythm Abdomen Exam: Positive: Normal bowel sounds, Soft; Negative: Tenderness Extremity Exam: Positive: Other (sequentials BL, Knee knee bandged); Negative: Edema Assessment /Plan Problems (1) HTN (hypertension) Status: Chronic Problem Text: BP on low side this am Hold HCTZ and Losartan for now (2) MINNIE on CPAP Status: Chronic Problem Text: Non-compliant with BIPAP. She did not bring her BIPAP as directed because "why would I bring it?. I don't use it at home anyway and I'm not going to use it here" Risk of non-compliance discussed - She is aware "Dr. Maher already read me the riot act over not wearing it" (3) Depressive disorder Status: Chronic Response to Treatment: Stable (4) Hypomagnesemia Status: Acute Problem Text: add oral mag Plan/VTE VTE Prophylaxis Ordered?: Yes (Per ortho) VS, I&O, 24H, Fishbone Vital Signs/I&O Vital Signs Date Time Temp Pulse Resp B/P (MAP) Pulse Ox O2 Delivery O2 Flow Rate FiO2 11/30/18 06:29 99.4 77 19 102/51 (68) 97 11/29/18 16:12 2.0 I&O- Last 24 Hours up to 6 AM 11/30/18 06:00 Intake Total 3565 ml Output Total 1050 ml Balance 2515 ml Laboratory Data 24H LABS Laboratory Tests 2 11/30/18 06:03: Nucleated Red Blood Cells % (auto) 0.0, Anion Gap 5L, Glomerular Filtration Rate > 60.0, Blood Urea Nitrogen 19H, Creatinine 0.90, Sodium Level 140, Potassium Level 3.9, Chloride Level 107, Carbon Dioxide Level 28, Calcium Level 8.6L, Magnesium Level 1.6L CBC/BMP Laboratory Tests 11/30/18 06:03 Red Blood Count 3.33 L, Mean Corpuscular Volume 93.7, Mean Corpuscular Hemoglobin 30.6, Mean Corpuscular Hemoglobin Concent 32.7, Red Cell Distribution Width 13.8, Calcium Level 8.6 L MONA BALL PA-C Nov 30, 2018 08:29
[2018-11-30] MEDS: MIRALAX *UNIT DOSE* 17GM PACKET PO SCH (08:30)
[2018-11-30] MEDS ORDERED: hydroCHLOROthiazide 12.5 MG CAPSULE PO SCH (09:00)
[2018-11-30] MEDS: MORPHINE 15 MG SA TAB PO SCH ×2 (09:49→20:40)
[2018-11-30] MEDS: MAGNESIUM OXIDE 400 MG TAB (MAG-OX) PO SCH ×2 (09:49→20:40)
[2018-11-30 10:00] VITALS: BP 108/58
[2018-11-30 14:00] VITALS: BP 105/60
[2018-11-30] MEDS: RIVAROXABAN 10 MG TAB (XARELTO) PO SCH (17:17)
[2018-11-30 20:09] VITALS: BP 105/58
[2018-12-01] MEDS: NORCO, ANEXSIA 5/325MG TABLET (HYDROcodone/ACETAMINOPHEN) PO PRN ×3 (06:41→23:56)
[2018-12-01 06:46] VITALS: BP 124/70
[2018-12-01 07:00] LABS: BLOOD UREA NITROGEN 19 MG/DL (7-18); CALCIUM LEVEL 8.4 MG/DL (8.8-10.2); CARBON DIOXIDE LEVEL 30 MEQ/L (21-32); CHLORIDE LEVEL 105 MEQ/L (98-107); CREATININE FOR GFR 0.71 MG/DL (0.55-1.30); GLOMERULAR FILTRATION RATE > 60.0 (>39); GLUCOSE, FASTING 117 MG/DL (70-100); MAGNESIUM LEVEL 2.3 MG/DL (1.8-2.4); POTASSIUM SERUM 3.7 MEQ/L (3.5-5.1); SODIUM LEVEL 139 MEQ/L (136-145)
[2018-12-01] MEDS ORDERED: HYDR-3713 PO (07:39)
[2018-12-01] MEDS ORDERED: XARE10TA PO (07:39)
[2018-12-01] MEDS: FLUoxetine 20 MG CAP PO SCH (08:05)
[2018-12-01] MEDS: MIRALAX *UNIT DOSE* 17GM PACKET PO SCH (08:05)
[2018-12-01] MEDS: CYANOCOBALAMIN 500 MCG TAB PO SCH (08:05)
[2018-12-01] MEDS: HumaLOG INSULIN (NovoLOG) PER UNIT SC SCH ×3 (08:05→17:30)
[2018-12-01] MEDS: ALLOPURINOL 300 MG TAB PO SCH (08:05)
[2018-12-01] MEDS: MAGNESIUM OXIDE 400 MG TAB (MAG-OX) PO SCH (08:06)
[2018-12-01] MEDS: ATORVASTATIN 20 MG TAB PO SCH (08:06)
[2018-12-01] MEDS: MOM 30ML SUSPENSION UDC PO SCH (08:06)
[2018-12-01] MEDS: SENOKOT S TAB PO SCH ×2 (08:07→20:06)
[2018-12-01] MEDS: MORPHINE 15 MG SA TAB PO SCH ×2 (08:07→20:07)
--- NOTE | 2018-12-01 08:30 | IPNPDOC ---
Subjective Date Seen The patient was seen on 12/01/18. Subjective Chief Complaint/HPI Still with significant pain in left knee. No other complaints Constitutional: Denies: Chills, Fever Pulmonary: Denies: Dyspnea, Cough Cardiovascular: Denies: Chest Pain, Palpitations Gastrointestinal: Denies: Nausea, Vomiting, Abdominal Pain, Diarrhea, Con stipation Objective Physical Examination General Exam: Positive: Alert (sitting up in chair, bright, alert oriented, NAD), No Acute Distress Chest Exam: Positive: Clear to auscultation; Negative: Rales, Rhonchi, Wheezing Heart Exam: Positive: Rate Normal, Regular Rhythm Abdomen Exam: Positive: Normal bowel sounds, Soft; Negative: Tenderness Extremity Exam: Positive: Other (sequentials BL, Knee knee bandged); Negative: Edema Assessment /Plan Problems (1) HTN (hypertension) Status: Chronic Problem Text: HCTZ and Losartan on hold for borderline low BP. BP improved today but not high. Would hold antihypertensives another day. (2) MINNIE on CPAP Status: Chronic Problem Text: Non-compliant with BIPAP. She did not bring her BIPAP as directed because "why would I bring it?. I don't use it at home anyway and I'm not going to use it here" Risk of non-compliance discussed - She is aware "Dr. Maher already read me the riot act over not wearing it (3) Depressive disorder Status: Chronic Response to Treatment: Stable (4) Hypomagnesemia Status: Resolved Problem Text: add oral mag Plan/VTE VTE Prophylaxis Ordered?: Yes (Per ortho) VS, I&O, 24H, [facility] Vital Signs/I&O Vital Signs Date Time Temp Pulse Resp B/P (MAP) Pulse Ox O2 Delivery O2 Flow Rate FiO2 12/01/18 08:07 16 12/01/18 06:46 98.0 85 124/70 (88) 100 11/29/18 16:12 2.0 I&O- Last 24 Hours up to 6 AM 12/01/18 06:00 Intake Total 1290 ml Output Total 550 ml Balance 740 ml Laboratory Data 24H LABS Laboratory Tests 2 11/30/18 11:33: Bedside Glucose (Misc Panel) 150H 11/30/18 16:50: Bedside Glucose (Misc Panel) 133H 11/30/18 20:13: Bedside Glucose (Misc Panel) 152H 12/01/18 06:20: Anion Gap 4L, Glomerular Filtration Rate > 60.0, Calcium Level 8.4L, Magnesium Level 2.3 CBC/BMP Laboratory Tests 12/01/18 06:20 MONA BALL PA-C Dec 01, 2018 08:30
[2018-12-01 14:02] VITALS: BP 107/55
[2018-12-01] MEDS: RIVAROXABAN 10 MG TAB (XARELTO) PO SCH (17:29)
[2018-12-01 20:14] VITALS: BP 121/70
[2018-12-02] MEDS: NORCO, ANEXSIA 5/325MG TABLET (HYDROcodone/ACETAMINOPHEN) PO PRN ×4 (04:26→18:13)
[2018-12-02 06:18] VITALS: BP 89/57
[2018-12-02 06:44] LABS: BLOOD UREA NITROGEN 19 MG/DL (7-18); CALCIUM LEVEL 8.6 MG/DL (8.8-10.2); CARBON DIOXIDE LEVEL 31 MEQ/L (21-32); CHLORIDE LEVEL 105 MEQ/L (98-107); GLOMERULAR FILTRATION RATE > 60.0 (>39); GLUCOSE, FASTING 117 MG/DL (70-100); MAGNESIUM LEVEL 2.2 MG/DL (1.8-2.4); SODIUM LEVEL 139 MEQ/L (136-145)
[2018-12-02 06:46] VITALS: BP 125/85
--- NOTE | 2018-12-02 08:23 | IPNPDOC ---
Subjective Date Seen The patient was seen on 12/02/18. Subjective Chief Complaint/HPI Pain much better controlled today. Did well with Pt. Needs to work on stairs today Constitutional: Denies: Chills, Fever Pulmonary: Denies: Dyspnea, Cough Cardiovascular: Denies: Chest Pain, Palpitations Gastrointestinal: Denies: Nausea, Vomiting, Abdominal Pain, Diarrhea, Constipation Objective Physical Examination General Exam: Positive: Alert, No Acute Distress Chest Exam: Positive: Clear to auscultation; Negative: Rales, Rhonchi, Wheezing Heart Exam: Positive: Rate Normal, Regular Rhythm Abdomen Exam: Positive: Normal bowel sounds, Soft; Negative: Tenderness Extremity Exam: Positive: Other (sequentials BL, Knee knee bandged); Negative: Edema Assessment /Plan Problems (1) HTN (hypertension) Status: Chronic Problem Text: 12/02 - BP remains on the low side despite BP meds on hold over last couple days. Drinking well. Check CBC to r/o significant anemia. Patient has been told to continue told to hold her BP meds upon discharge and monitor BP at home. Restart meds if BP starts to climb above 130/80. (2) MINNIE on CPAP Status: Chronic Problem Text: Non-compliant with BIPAP. She did not bring her BIPAP as directed because "why would I bring it?. I don't use it at home anyway and I'm not going to use it here" Risk of non-compliance discussed - She is aware "Dr. Maher already read me the riot act over not wearing it (3) Depressive disorder Status: Chronic Response to Treatment: Stable (4) Hypomagnesemia Status: Resolved Problem Text: add oral mag Plan/VTE VTE Prophylaxis Ordered?: Yes (Per ortho) VS, I&O, 24H, Fishbone Vital Signs/I&O Vital Signs Date Time Temp Pulse Resp B/P (MAP) Pulse Ox O2 Delivery O2 Flow Rate FiO2 12/02/18 06:46 125/85 (98) 12/02/18 06:18 99.0 81 93 12/02/18 04:26 16 11/29/18 16:12 2.0 I&O- Last 24 Hours up to 6 AM 12/02/18 06:00 Intake Total 1670 ml Output Total 800 ml Balance 870 ml Laboratory Data 24H LABS Laboratory Tests 2 12/01/18 11:40: Bedside Glucose (Misc Panel) 124H 12/01/18 16:38: Bedside Glucose (Misc Panel) 126H 12/01/18 20:11: Bedside Glucose (Misc Panel) 111H 12/02/18 06:08: Anion Gap 3L, Glomerular Filtration Rate > 60.0, Calcium Level 8.6L, Magnesium Level 2.2 CBC/BMP Laboratory Tests 12/02/18 06:08 MONA BALL PA-C Dec 02, 2018 08:23
[2018-12-02] MEDS: HumaLOG INSULIN (NovoLOG) PER UNIT SC SCH ×3 (08:27→17:30)
[2018-12-02] MEDS: MIRALAX *UNIT DOSE* 17GM PACKET PO SCH (08:27)
[2018-12-02] MEDS: CYANOCOBALAMIN 500 MCG TAB PO SCH (08:28)
[2018-12-02] MEDS: ATORVASTATIN 20 MG TAB PO SCH (08:28)
[2018-12-02] MEDS: ALLOPURINOL 300 MG TAB PO SCH (08:28)
[2018-12-02] MEDS: MOM 30ML SUSPENSION UDC PO SCH (08:28)
[2018-12-02] MEDS: SENOKOT S TAB PO SCH (08:28)
[2018-12-02] MEDS: FLUoxetine 20 MG CAP PO SCH (08:28)
[2018-12-02] MEDS ORDERED: MAGNESIUM OXIDE 400 MG TAB (MAG-OX) PO SCH (09:00)
[2018-12-02 09:16] LABS: HEMATOCRIT 30.2 % (36.0-47.0); HEMOGLOBIN 9.7 g/dl (12.0-15.5); MEAN CORPUSCULAR HEMOGLOBIN 31.1 pg (27.0-33.0); MEAN CORPUSCULAR HGB CONC 32.1 g/dl (32.0-36.5); MEAN CORPUSCULAR VOLUME 96.8 fl (80.0-96.0); PLATELET COUNT, AUTOMATED 257 10^3/uL (150-450); RED BLOOD COUNT 3.12 10^6/uL (4.00-5.40); WHITE BLOOD COUNT 11.4 10^3/uL (4.0-10.0)
[2018-12-02] MEDS: MORPHINE 15 MG SA TAB PO SCH (11:52)
[2018-12-02] MEDS: RIVAROXABAN 10 MG TAB (XARELTO) PO SCH (18:13)
== END 2018-12-02 18:15 | disposition home health service (06) | DRG 470 ==
LOC: M OR 08:22 → M MS5PR 13:45
PROVIDERS: ADMIT Orthopaedic Surgery; ATTEND Orthopaedic Surgery
PROC: 0SRD0J9 Replacement of Left Knee Joint with Synthetic Substitute, Cemented, Open Approach (ICD-10-PCS; principal; 2018-11-29 10:30)
DX: M17.12 Unilateral primary osteoarthritis, left knee (principal); Z68.41 Body mass index [BMI] 40.0-44.9, adult; E66.9 Obesity, unspecified; E83.42 Hypomagnesemia; Z79.899 Other long term (current) drug therapy; I10 Essential (primary) hypertension; E11.9 Type 2 diabetes mellitus without complications; M81.0 Age-related osteoporosis without current pathological fracture; E53.8 Deficiency of other specified B group vitamins; G47.33 Obstructive sleep apnea (adult) (pediatric); M51.36 Other intervertebral disc degeneration, lumbar region; Z96.651 Presence of right artificial knee joint; Z98.42 Cataract extraction status, left eye; Z98.41 Cataract extraction status, right eye; F32.9 Major depressive disorder, single episode, unspecified

== ENCOUNTER → 2019-02-15 | Outpatient (REF) | payer MEDICARE, MEDICAID ==
[~2019-02-15] MED LIST changes: +HYDR-3713 PO; -LIDOCAINE 2% INJ 100 MG/5 ML SDV (FOR ANES.) As Ordered ONE; -LR 1,000 ML IV ONE; -MIDAZOLAM INJ 2 MG/2 ML VIAL (J2250) IV SCH; -ONDANSETRON 4MG/2ML VIAL (J2405) As Ordered ONE; -PROPOFOL 200 MG/20 ML VIAL As Ordered ONE; -ceFAZolin SOD 2 GM in IV 1 EA IV ONE; -fentaNYL 100 MCG/2 ML INJECTION (J3010) As Ordered ONE; -fentaNYL 100 MCG/2 ML INJECTION (J3010) IV SCH
[2019-02-15 13:03] LABS: BASO % 0.3 % (0.0-1.0); EOS # 0.2 10^3/uL (0.0-0.5); EOS % 1.7 % (0.0-3.0); HEMATOCRIT 42.2 % (36.0-47.0); HEMOGLOBIN 13.3 g/dl (12.0-15.5); LYMPH % 22.6 % (24.0-44.0); MEAN CORPUSCULAR HGB CONC 31.5 g/dl (32.0-36.5); MONO # 0.6 10^3/uL (0.0-0.8); MONO % 6.8 % (0.0-5.0); NEUTROPHILS % 68.1 % (36.0-66.0); PLATELET COUNT, AUTOMATED 304 10^3/uL (150-450); RED BLOOD COUNT 4.44 10^6/uL (4.00-5.40); WHITE BLOOD COUNT 8.8 10^3/uL (4.0-10.0)
[2019-02-15 13:12] LABS: CHOLESTEROL RISK RATIO 3.904 (<5)
[2019-02-15 13:20] LABS: PTH INTACT 70.1 PG/ML (18.5-88.0); TOTAL 25(OH) VITAMIN D 39.6 NG/ML (30.0-100.0)
[2019-02-15 13:39] LABS: HEMOGLOBIN A1c 6.2 %
== END ==
LOC: M SFHCPLAZ 10:32
PROVIDERS: ATTEND Family Medicine
DX: E53.8 Deficiency of other specified B group vitamins (principal); E11.9 Type 2 diabetes mellitus without complications; E78.2 Mixed hyperlipidemia; E55.9 Vitamin D deficiency, unspecified; Z79.899 Other long term (current) drug therapy
CPT/HCPCS: 36415; 80061; 82306; 82607; 83036; 83970; 85025; 85046; G0463

== ENCOUNTER → 2019-07-19 | Outpatient (REF) | payer MEDICARE, MEDICAID ==
[~2019-07-19] MED LIST changes: +IRBE75TA4 PO; -IRBE75TA5 PO
[2019-07-19 13:14] LABS: ALBUMIN 3.6 GM/DL (3.2-5.2); ALT/SGPT 23 U/L (12-78); BASO % 0.4 % (0.0-1.0); BILIRUBIN,TOTAL 0.5 MG/DL (0.2-1.0); BLOOD UREA NITROGEN 21 MG/DL (7-18); CALCIUM LEVEL 9.1 MG/DL (8.8-10.2); CARBON DIOXIDE LEVEL 27 MEQ/L (21-32); CHLORIDE LEVEL 106 MEQ/L (98-107); CHOLESTEROL LEVEL 135 MG/DL (<200); CHOLESTEROL RISK RATIO 3.552 (<5); CREATININE FOR GFR 0.92 MG/DL (0.55-1.30); EOS # 0.1 10^3/uL (0.0-0.5); EOS % 1.3 % (0.0-3.0); GLOMERULAR FILTRATION RATE > 60.0 (>39); GLUCOSE, FASTING 107 MG/DL (70-100); HDL CHOLESTEROL 38 MG/DL (>40); HEMATOCRIT 38.2 % (36.0-47.0); HEMOGLOBIN 12.8 g/dl (12.0-15.5); LDL CHOLESTEROL 72 MG/DL (<100); LYMPH # 1.9 10^3/uL (1.5-5.0); LYMPH % 22.5 % (24.0-44.0); MAGNESIUM LEVEL 1.8 MG/DL (1.8-2.4); MEAN CORPUSCULAR HGB CONC 33.5 g/dl (32.0-36.5); MEAN CORPUSCULAR VOLUME 92.5 fl (80.0-96.0); MONO # 0.6 10^3/uL (0.0-0.8); MONO % 6.9 % (0.0-5.0); NEUTROPHILS # 5.7 10^3/uL (1.5-8.5); NEUTROPHILS % 68.5 % (36.0-66.0); NON-HDL-C 97 MG/DL; NT-PRO BNP 257 PG/ML (<450); PLATELET COUNT, AUTOMATED 280 10^3/uL (150-450); POTASSIUM SERUM 3.8 MEQ/L (3.5-5.1); RED BLOOD COUNT 4.13 10^6/uL (4.00-5.40); SODIUM LEVEL 139 MEQ/L (136-145); TOTAL PROTEIN 6.8 GM/DL (6.4-8.2); TRIGLYCERIDES LEVEL 124 MG/DL (<150); WHITE BLOOD COUNT 8.3 10^3/uL (4.0-10.0)
[2019-07-19 13:40] LABS: HEMOGLOBIN A1c 6.2 %
== END ==
LOC: M SFHCPLAZ 10:31
PROVIDERS: ATTEND Family Medicine
DX: E11.9 Type 2 diabetes mellitus without complications (principal)

== ENCOUNTER → 2019-10-04 | Outpatient (CLI) | payer MEDICARE, MEDICAID ==
[~2019-10-04] MED LIST changes: -ASPI81TA85 PO; +ASPI81TA86 PO
--- NOTE | 2019-10-19 11:42 | REPMRS ---
Patient History The patient states she has not had a clinical breast exam in over a year. Patient is postmenopausal. Family history of pancreatic cancer at age 50 or over in paternal uncle. Benign stereotatic breast biopsy of the right breast, 2009. No Hormone Replacement Therapy Digital Woman Screen Mammo: October 04, 2019 - Exam #: [id number] Bilateral CC and MLO view(s) were taken. Technologist: Samantha Bah, Technologist Prior study comparison: October 01, 2018, bilateral digital woman screen mammo performed at [facility]. September 30, 2017, bilateral digital woman screen mammo performed at [facility]. October 01, 2016, digital woman screen mammo performed at [facility]. FINDINGS: The breast tissue is almost entirely fat. The Volpara volumetric breast density category is: A. There is a needle biopsy marker clip in the right breast. There has been no change in the appearance of the mammogram from the prior studies. There is no interval development of dominant mass, architectural distortion, or grouped microcalcification typical of malignancy. 3-D tomosynthesis shows no additional findings. Assessment: BI-RADS/ACR category 2 mammogram. Benign Findings. Recommendation Routine screening mammogram of both breasts in 1 year (for women over age 40). This patient's Lifetime Breast Cancer RIsk is estimated at 0.9 %. This mammogram was interpreted with the aid of an FDA-approved computer-aided dectection system. Electronically Signed By: Klever Alonso MD 10/19/19 [id number]
== END ==
LOC: M WHC 17:05
PROVIDERS: ATTEND Family Medicine
DX: Z12.31 Encounter for screening mammogram for malignant neoplasm of breast (principal)

== ENCOUNTER → 2020-01-06 | Outpatient (REF) | payer MEDICARE, MEDICAID ==
[2020-01-06 14:17] LABS: BASO % 0.3 % (0.0-1.0); EOS # 0.2 10^3/uL (0.0-0.5); HEMATOCRIT 41.3 % (36.0-47.0); LYMPH # 2.1 10^3/uL (1.5-5.0); LYMPH % 22.7 % (24.0-44.0); MEAN CORPUSCULAR HEMOGLOBIN 29.5 pg (27.0-33.0); MEAN CORPUSCULAR HGB CONC 31.5 g/dl (32.0-36.5); MEAN CORPUSCULAR VOLUME 93.9 fl (80.0-96.0); MONO # 0.7 10^3/uL (0.0-0.8); NEUTROPHILS # 6.2 10^3/uL (1.5-8.5); NEUTROPHILS % 66.6 % (36.0-66.0); PLATELET COUNT, AUTOMATED 291 10^3/uL (150-450); WHITE BLOOD COUNT 9.3 10^3/uL (4.0-10.0)
[2020-01-06 14:24] LABS: ALBUMIN 3.7 GM/DL (3.2-5.2); ALT/SGPT 22 U/L (12-78); BILIRUBIN,TOTAL 0.5 MG/DL (0.2-1.0); BLOOD UREA NITROGEN 19 MG/DL (7-18); CALCIUM LEVEL 9.4 MG/DL (8.8-10.2); CARBON DIOXIDE LEVEL 29 MEQ/L (21-32); CHLORIDE LEVEL 106 MEQ/L (98-107); CREATININE FOR GFR 0.91 MG/DL (0.55-1.30); GLOMERULAR FILTRATION RATE > 60.0 (>32); GLUCOSE, FASTING 109 MG/DL (70-100); POTASSIUM SERUM 4.4 MEQ/L (3.5-5.1); SODIUM LEVEL 141 MEQ/L (136-145); TOTAL PROTEIN 6.9 GM/DL (6.4-8.2)
[2020-01-06 14:30] LABS: APPEARANCE, URINE CLOUDY (CLEAR); BACTERIA, URINE AUTO 1+ (NEGATIVE); BILIRUBIN, URINE AUTO NEGATIVE (NEGATIVE); BLOOD, URINE BLOOD NEGATIVE (NEGATIVE); COLOR, URINE YELLOW (YELLOW); GLUCOSE, URINE (UA) AUTO NEGATIVE (NEGATIVE); KETONE, URINE AUTO NEGATIVE (NEGATIVE); LEUKOCYTE ESTERASE, URINE AUTO 3+ (NEGATIVE); MUCUS, URINE SMALL (NEGATIVE); NITRITE, URINE AUTO NEGATIVE (NEGATIVE); PROTEIN, URINE AUTO NEGATIVE (NEGATIVE); RBC, URINE AUTO 5 /HPF (0-3); RENAL EPITHELIAL CELLS 1 /HPF; SQUAMOUS EPITHELIAL CELL UR AU 12 /HPF (0-6); TRANSITIONAL EPITHELIAL AUTO 3 /HPF; UROBILINOGEN, URINE AUTO 0.2 mg/dL (0.0-2.0); WBC, URINE AUTO 38 /HPF (0-3)
[2020-01-06 14:32] LABS: VITAMIN B12 LEVEL 1874 PG/ML (247-911)
[2020-01-06 14:44] LABS: HEMOGLOBIN A1c 5.9 %
[2020-01-06 14:59] LABS: MALB URINE SIEMENS 25.3 MG/L; MAU/CREAT RATIO 13.6 MCG/MG (0.0-30.0)
== END ==
LOC: M SFHCPLAZ 09:57
PROVIDERS: ATTEND Family Medicine
DX: E53.8 Deficiency of other specified B group vitamins (principal); E11.9 Type 2 diabetes mellitus without complications
CPT/HCPCS: 36415; 80053; 81001; 82043; 82607; 83036; 83525; 85025; 85046; G0463

== ENCOUNTER → 2020-02-22 | Outpatient (REF) | payer MEDICARE, OTHER, MEDICAID | LOC: M LAB REF 12:31 | PROVIDERS: ATTEND Physician Assistant | DX: R05 Cough (principal); R50.9 Fever, unspecified ==

== ENCOUNTER → 2020-05-10 | Outpatient (REF) | payer MEDICARE, MEDICAID ==
[~2020-05-10] MED LIST changes: +HYDR-3490 PO; -HYDR25TAB PO
[2020-05-10 14:30] LABS: HEMOGLOBIN A1c 5.8 %
[2020-05-10 14:43] LABS: ALBUMIN 4.1 GM/DL (3.2-5.2); ALT/SGPT 30 U/L (12-78); BILIRUBIN,TOTAL 0.5 MG/DL (0.2-1.0); BLOOD UREA NITROGEN 21 MG/DL (7-18); CALCIUM LEVEL 9.6 MG/DL (8.8-10.2); CARBON DIOXIDE LEVEL 30 MEQ/L (21-32); CHLORIDE LEVEL 108 MEQ/L (98-107); CHOLESTEROL LEVEL 192 MG/DL (<200); CREATININE FOR GFR 0.93 MG/DL (0.55-1.30); FREE T4 0.91 NG/DL (0.76-1.46); GLOMERULAR FILTRATION RATE > 60.0 (>32); GLUCOSE, FASTING 122 MG/DL (70-100); HDL CHOLESTEROL 48 MG/DL (>40); LDL CHOLESTEROL 107 MG/DL (<100); NON-HDL-C 144 MG/DL; POTASSIUM SERUM 4.1 MEQ/L (3.5-5.1); SODIUM LEVEL 143 MEQ/L (136-145); TOTAL PROTEIN 7.1 GM/DL (6.4-8.2); TRIGLYCERIDES LEVEL 183 MG/DL (<150)
[2020-05-10 14:48] LABS: PTH INTACT 51.3 PG/ML (18.5-88.0); TOTAL 25(OH) VITAMIN D 40.3 NG/ML (30.0-100.0)
[2020-05-11 10:52] LABS: ALBUMIN 4.04 GM/DL (3.29-5.55); ALBUMIN % 56.9 % (55.8-66.1); ALPHA-1-GLOBULIN % 4.2 % (2.9-4.9); ALPHA-2-GLOBULINS 1.04 GM/DL (0.42-0.99); ALPHA-2-GLOBULINS % 14.6 % (7.1-11.8); BETA-1-GLOBULINS 0.43 GM/DL (0.28-0.60); BETA-1-GLOBULINS % 6.1 % (4.7-7.2); BETA-2-GLOBULINS 0.37 GM/DL (0.19-0.55); BETA-2-GLOBULINS % 5.2 % (3.2-6.5); GAMMA GLOBULINS 0.92 GM/DL (0.65-1.58)
== END ==
LOC: M SFHCPLAZ 11:12
PROVIDERS: ATTEND Family Medicine
DX: E55.9 Vitamin D deficiency, unspecified (principal); E78.2 Mixed hyperlipidemia; E11.9 Type 2 diabetes mellitus without complications; E53.8 Deficiency of other specified B group vitamins; M10.9 Gout, unspecified
CPT/HCPCS: 36415; 80053; 80061; 82306; 83036; 83525; 83970; 84165; 84439; 84443; 84550; 86335; G0463

== ENCOUNTER → 2020-10-11 | Outpatient (CLI) | payer MEDICARE, MEDICAID ==
[2020-10-11 18:18] LABS: BASO % 0.4 % (0.0-1.0); EOS # 0.2 10^3/uL (0.0-0.5); EOS % 1.8 % (0.0-3.0); HEMATOCRIT 40.3 % (36.0-47.0); HEMOGLOBIN 13.1 g/dl (12.0-15.5); LYMPH # 2.4 10^3/uL (1.5-5.0); LYMPH % 25.7 % (24.0-44.0); MEAN CORPUSCULAR HEMOGLOBIN 30.6 pg (27.0-33.0); MEAN CORPUSCULAR HGB CONC 32.5 g/dl (32.0-36.5); MEAN CORPUSCULAR VOLUME 94.2 fl (80.0-96.0); MONO # 0.7 10^3/uL (0.0-0.8); MONO % 7.8 % (2.0-8.0); NEUTROPHILS % 63.9 % (36.0-66.0); PLATELET COUNT, AUTOMATED 305 10^3/uL (150-450); RED BLOOD COUNT 4.28 10^6/uL (4.00-5.40); WHITE BLOOD COUNT 9.4 10^3/uL (4.0-10.0)
[2020-10-11 18:33] LABS: HEMOGLOBIN A1c 5.9 %
[2020-10-11 18:51] LABS: ALBUMIN 3.3 GM/DL (3.2-5.2); ALT/SGPT 25 U/L (12-78); BILIRUBIN,TOTAL 0.3 MG/DL (0.2-1.0); BLOOD UREA NITROGEN 25 MG/DL (7-18); CALCIUM LEVEL 9.3 MG/DL (8.8-10.2); CARBON DIOXIDE LEVEL 29 MEQ/L (21-32); CHLORIDE LEVEL 107 MEQ/L (98-107); CHOLESTEROL LEVEL 150 MG/DL (<200); CHOLESTEROL RISK RATIO 3.571 (<5); FERRITIN 158 NG/ML (8-252); GLOMERULAR FILTRATION RATE > 60.0 (>32); GLUCOSE, FASTING 83 MG/DL (70-100); HDL CHOLESTEROL 42 MG/DL (>40); LDL CHOLESTEROL 72 MG/DL (<100); NON-HDL-C 108 MG/DL; POTASSIUM SERUM 4.3 MEQ/L (3.5-5.1); SODIUM LEVEL 141 MEQ/L (136-145); TOTAL PROTEIN 7.1 GM/DL (6.4-8.2); TRIGLYCERIDES LEVEL 181 MG/DL (<150)
[2020-10-11 18:53] LABS: VITAMIN B12 LEVEL 1161 PG/ML (247-911)
== END ==
LOC: M PLALAB 13:14
PROVIDERS: ATTEND Family Medicine
DX: E53.8 Deficiency of other specified B group vitamins (principal); I10 Essential (primary) hypertension; E11.9 Type 2 diabetes mellitus without complications
CPT/HCPCS: 36415; 80053; 80061; 82607; 82728; 83036; 85025; G0463

== ENCOUNTER → 2020-10-31 | Outpatient (CLI) | payer MEDICARE, MEDICAID ==
--- NOTE | 2020-10-31 14:47 | REPMRS ---
Patient History The patient states she has not had a clinical breast exam in over a year. Family history of pancreatic cancer at age 50 or over in paternal uncle. Benign stereotatic breast biopsy of the right breast, 2009. No Hormone Replacement Therapy Pfizer vaccine 05/19/20 left arm. 06/09/20 left arm. Patient states no breast complaints today. Patient has signed MRS History Sheet. Digital Woman Screen Mammo: October 31, 2020 - Exam #: [id number] Bilateral CC and MLO view(s) were taken. Technologist: RT Ashish Prior study comparison: October 04, 2019, bilateral digital woman screen mammo performed at [facility]. October 01, 2018, bilateral digital woman screen mammo performed at [facility]. FINDINGS: The breast tissue is almost entirely fat. Screening. Digital screening (2D) mammography was performed bilaterally in the CC and MLO projections. Additionally, breast tomosynthesis (3D mammography) was performed bilaterally in the CC and MLO projections. Todays exam was compared to the prior exam/exams. By history, the patient has no complaints of a palpable breast abnormality or other significant breast complaints. The breasts are unchanged in size and shape. There are no esperanza-soft tissue densities or spiculated masses. There is no internal architectural distortion. Once again, stable benign appearing calcifications are seen.There are no suspicious esperanza-calcific clusters. Skin thickening or nipple retraction is not present. IMPRESSION: BI-RADS Category 2- Benign Findings. There is no evidence of malignant alteration of the breasts. Followup examination recommended in one year. The Volpara volumetric breast density category is B, there are scattered areas of fibroglandular densities. This mammogram was read with the assistance of [facility],an FDA approved computer aided detection system for mammography. The lifetime Tyrer-Cuzick score is 0.7 % Negative x-ray reports should not delay surgical consultation if a dominant or clinically suspicious mass is present. Not all breast cancers can be identified by mammography. Therefore, we recommend that you continue to perform regular breast self-examination and physical examination and then promptly contact your physician of any concerns or changes. Adenosis and dense breasts may obscure an underlying neoplasm. Assessment: BI-RADS/ACR category 2 mammogram. Benign Findings. Recommendation Routine screening mammogram of both breasts in 1 year. Electronically Signed By: Mauro Pagan DO 10/31/20 [id number]
== END ==
LOC: M WHC 13:47
PROVIDERS: ATTEND Family Medicine
DX: Z12.31 Encounter for screening mammogram for malignant neoplasm of breast (principal); Z80.0 Family history of malignant neoplasm of digestive organs; R92.1 Mammographic calcification found on diagnostic imaging of breast

== ENCOUNTER → 2021-03-15 | Outpatient (CLI) | payer MEDICARE, MEDICAID ==
[2021-03-15 11:14] LABS: ALBUMIN 3.6 GM/DL (3.2-5.2); ALT/SGPT 20 U/L (12-78); BILIRUBIN,TOTAL 0.4 MG/DL (0.2-1.0); BLOOD UREA NITROGEN 22 MG/DL (7-18); CARBON DIOXIDE LEVEL 29 MEQ/L (21-32); CHLORIDE LEVEL 108 MEQ/L (98-107); CREATININE FOR GFR 0.92 MG/DL (0.55-1.30); GLOMERULAR FILTRATION RATE > 60.0 (>32); GLUCOSE, FASTING 108 MG/DL (70-100); NT-PRO BNP 209 PG/ML (<450); POTASSIUM SERUM 4.2 MEQ/L (3.5-5.1); SODIUM LEVEL 141 MEQ/L (136-145); TOTAL PROTEIN 6.8 GM/DL (6.4-8.2); URIC ACID 4.3 MG/DL (2.6-6.0)
[2021-03-15 11:16] LABS: TOTAL 25(OH) VITAMIN D 48.8 NG/ML (30.0-100.0)
[2021-03-15 11:17] LABS: MALB URINE SIEMENS 27.5 MG/L; MAU/CREAT RATIO 15.1 MCG/MG (0.0-30.0); PTH INTACT 89.4 PG/ML (18.5-88.0)
== END ==
LOC: M PLALAB 08:45
PROVIDERS: ATTEND Family Medicine
DX: I10 Essential (primary) hypertension (principal); E55.9 Vitamin D deficiency, unspecified; E11.9 Type 2 diabetes mellitus without complications

== ENCOUNTER 2021-05-13 16:57 | Emergency (ER) | payer MEDICARE, MEDICAID ==
[~2021-05-13] VITALS: Ht 149.9 cm; Wt 90.9 kg
[2021-05-13] MEDS ORDERED: ASPI81CH33 PO (17:32)
[2021-05-13 19:51] LABS: BASO # 0.1 10^3/uL (0.0-0.2); BASO % 0.5 % (0.0-1.0); EOS # 0.2 10^3/uL (0.0-0.5); EOS % 1.3 % (0.0-3.0); HEMATOCRIT 43.7 % (36.0-47.0); HEMOGLOBIN 14.4 g/dl (12.0-15.5); LYMPH # 3.2 10^3/uL (1.5-5.0); LYMPH % 22.1 % (24.0-44.0); MEAN CORPUSCULAR HEMOGLOBIN 30.6 pg (27.0-33.0); MEAN CORPUSCULAR VOLUME 92.8 fl (80.0-96.0); MONO # 1.1 10^3/uL (0.0-0.8); MONO % 7.5 % (2.0-8.0); NEUTROPHILS # 9.8 10^3/uL (1.5-8.5); NEUTROPHILS % 68.3 % (36.0-66.0); PLATELET COUNT, AUTOMATED 309 10^3/uL (150-450); RED BLOOD COUNT 4.71 10^6/uL (4.00-5.40); WHITE BLOOD COUNT 14.3 10^3/uL (4.0-10.0)
[2021-05-13 20:23] LABS: ERYTHROCYTE SEDIMENTATION RATE 32 mm/hr (0-30)
[2021-05-13 20:27] LABS: C REACTIVE PROTEIN QUANTITATIV 0.3 MG/DL (0.00-0.30); CREATININE FOR GFR 1.11 MG/DL (0.55-1.30); GLOMERULAR FILTRATION RATE 50.2 (>32); POTASSIUM SERUM 3.9 MEQ/L (3.5-5.1)
[2021-05-13] MEDS ORDERED: NS 1,000 ML IV ONE (20:35)
[2021-05-13 20:54] LABS: ALBUMIN 4.1 GM/DL (3.2-5.2); BILIRUBIN,DIRECT 0.1 MG/DL (0.0-0.2); BILIRUBIN,TOTAL 0.4 MG/DL (0.2-1.0); TOTAL PROTEIN 7.7 GM/DL (6.4-8.2)
[2021-05-13] MEDS ORDERED: CEFDINIR 300 MG CAP (OMNICEF) PO ONE (21:45)
[2021-05-13] MEDS ORDERED: KETOROLAC 30 MG/ML 1ML VIAL IV ONE (21:45)
[2021-05-13] MEDS ORDERED: CEFD300C41 PO (21:47)
[2021-05-13 22:17] VITALS: BP 143/72
== END 2021-05-13 22:20 | disposition home or self-care (01) ==
LOC: M ED 16:57
DX: N39.0 Urinary tract infection, site not specified (principal); R10.9 Unspecified abdominal pain; I10 Essential (primary) hypertension; K57.30 Diverticulosis of large intestine without perforation or abscess without bleeding; Z79.899 Other long term (current) drug therapy
CPT/HCPCS: 74176; 80048; 80076; 81001; 85025; 85652; 86140; 87086; 96374; 99284; J1885

== ENCOUNTER → 2021-05-16 | Outpatient (CLI) | payer MEDICARE, MEDICAID ==
[~2021-05-16] MED LIST changes: +ASPI81CH33 PO; +CEFD300C41 PO
== END ==
LOC: M PLAIMG 13:27
PROVIDERS: ATTEND Family Medicine
DX: M48.04 Spinal stenosis, thoracic region (principal); M51.34 Other intervertebral disc degeneration, thoracic region; M51.36 Other intervertebral disc degeneration, lumbar region; R27.0 Ataxia, unspecified

== ENCOUNTER 2021-10-08 17:43 | Emergency (ER) | payer MEDICARE, MEDICAID ==
[2021-10-08] MEDS ORDERED: ACETAMINOPHEN TAB 650MG DOSE (2X325MG) PO ONE (19:15)
[2021-10-08 20:07] VITALS: BP 177/83
== END 2021-10-08 20:11 | disposition home or self-care (01) ==
LOC: EDBD 17:43 → M ED 18:51
DX: S30.0XXA Contusion of lower back and pelvis, initial encounter (principal); S40.022A Contusion of left upper arm, initial encounter; S70.02XA Contusion of left hip, initial encounter; W10.9XXA Fall (on) (from) unspecified stairs and steps, initial encounter; Y92.099 Unspecified place in other non-institutional residence as the place of occurrence of the external cause; E11.9 Type 2 diabetes mellitus without complications; I10 Essential (primary) hypertension; E66.9 Obesity, unspecified; G47.33 Obstructive sleep apnea (adult) (pediatric); Z79.82 Long term (current) use of aspirin; Z79.899 Other long term (current) drug therapy

== ENCOUNTER → 2021-10-18 | Outpatient (CLI) | payer MEDICARE, MEDICAID | LOC: M RAD 15:45 | PROVIDERS: ATTEND Physician Assistant Medical | DX: S32.020A Wedge compression fracture of second lumbar vertebra, initial encounter for closed fracture (principal); W10.9XXA Fall (on) (from) unspecified stairs and steps, initial encounter; Y92.9 Unspecified place or not applicable; Y93.9 Activity, unspecified; Y99.9 Unspecified external cause status; M54.50 Low back pain, unspecified ==

== ENCOUNTER → 2022-04-04 | Outpatient (CLI) | payer MEDICARE, MEDICAID ==
[2022-04-04 14:12] LABS: ALBUMIN 3.5 G/DL (3.2-5.2); ALKALINE PHOSPHATASE 113 U/L (46-116); ALT/SGPT 20 U/L (7.0-40); AST/SGOT 20 U/L (<34); BILIRUBIN,TOTAL 0.6 MG/DL (0.3-1.2); BLOOD UREA NITROGEN 19 MG/DL (9-23); CARBON DIOXIDE LEVEL 28 MMOL/L (20-31); CHLORIDE LEVEL 105 MMOL/L (98-107); FERRITIN 133.7 NG/ML (7.3-270.7); GLOMERULAR FILTRATION RATE > 60.0 (>32); GLUCOSE, FASTING 113 MG/DL (74-106); SODIUM LEVEL 142 MMOL/L (136-145); TOTAL PROTEIN 6.6 G/DL (5.7-8.2); VITAMIN B12 LEVEL 943 PG/ML (211-911)
[2022-04-04 14:16] LABS: BASO % 0.5 % (0.0-1.0); EOS # 0.2 10^3/uL (0.0-0.5); HEMATOCRIT 39.6 % (36.0-47.0); HEMOGLOBIN 12.9 g/dl (12.0-15.5); LYMPH # 2.4 10^3/uL (1.5-5.0); LYMPH % 29.3 % (24.0-44.0); MEAN CORPUSCULAR HEMOGLOBIN 30.5 pg (27.0-33.0); MEAN CORPUSCULAR HGB CONC 32.6 g/dl (32.0-36.5); MEAN CORPUSCULAR VOLUME 93.6 fl (80.0-96.0); MONO # 0.6 10^3/uL (0.0-0.8); MONO % 7.2 % (2.0-8.0); NEUTROPHILS # 4.9 10^3/uL (1.5-8.5); NEUTROPHILS % 60.6 % (36.0-66.0); PLATELET COUNT, AUTOMATED 279 10^3/uL (150-450); RED BLOOD COUNT 4.23 10^6/uL (4.00-5.40); WHITE BLOOD COUNT 8.1 10^3/uL (4.0-10.0)
[2022-04-04 14:30] LABS: HEMOGLOBIN A1c 5.9 % (4.0-6.0)
== END ==
LOC: M PLALAB 09:33
PROVIDERS: ATTEND Family Medicine
DX: E11.9 Type 2 diabetes mellitus without complications (principal); I10 Essential (primary) hypertension; E53.8 Deficiency of other specified B group vitamins

== ENCOUNTER → 2022-07-11 | Outpatient (CLI) | payer MEDICARE, MEDICAID | LOC: M WHC 12:49 | PROVIDERS: ATTEND Family Medicine | DX: Z12.39 Encounter for other screening for malignant neoplasm of breast (principal) ==

== ENCOUNTER → 2023-01-29 | Outpatient (CLI) | payer MEDICARE, MEDICAID ==
[~2023-01-29] MED LIST changes: +CEFD1CAP9 PO; -CEFD300C41 PO
[2023-01-29 16:18] LABS: BASO # 0.1 10^3/uL (0.0-0.2); BASO % 0.6 % (0.0-1.0); EOS # 0.1 10^3/uL (0.0-0.5); EOS % 0.9 % (0.0-3.0); HEMATOCRIT 40.2 % (36.0-47.0); HEMOGLOBIN 13.2 g/dl (12.0-15.5); LYMPH # 1.9 10^3/uL (1.5-5.0); MEAN CORPUSCULAR HEMOGLOBIN 30.7 pg (27.0-33.0); MEAN CORPUSCULAR HGB CONC 32.8 g/dl (32.0-36.5); MEAN CORPUSCULAR VOLUME 93.5 fl (80.0-96.0); MONO # 0.6 10^3/uL (0.0-0.8); MONO % 7.5 % (2.0-8.0); NEUTROPHILS # 5.6 10^3/uL (1.5-8.5); NEUTROPHILS % 67.8 % (36.0-66.0); PLATELET COUNT, AUTOMATED 317 10^3/uL (150-450); WHITE BLOOD COUNT 8.2 10^3/uL (4.0-10.0)
[2023-01-29 16:39] LABS: HEMOGLOBIN A1c 5.8 % (4.0-6.0)
[2023-01-29 16:47] LABS: ALBUMIN 3.9 G/DL (3.2-5.2); ALKALINE PHOSPHATASE 130 U/L (46-116); ALT/SGPT 18 U/L (7.0-40); AST/SGOT 20 U/L (<34); BILIRUBIN,TOTAL 0.7 MG/DL (0.3-1.2); BLOOD UREA NITROGEN 18 MG/DL (9-23); CALCIUM LEVEL 9.3 MG/DL (8.3-10.6); CARBON DIOXIDE LEVEL 27 MMOL/L (20-31); CHLORIDE LEVEL 104 MMOL/L (98-107); CREATININE FOR GFR 0.84 MG/DL (0.55-1.30); GLOMERULAR FILTRATION RATE > 60.0 (>32); GLUCOSE, FASTING 100 MG/DL (74-106); MAGNESIUM LEVEL 1.8 MG/DL (1.8-2.4); POTASSIUM SERUM 3.8 MMOL/L (3.5-5.1); SODIUM LEVEL 142 MMOL/L (136-145); TOTAL PROTEIN 6.9 G/DL (5.7-8.2)
[2023-01-29 16:51] LABS: FERRITIN 195.3 NG/ML (7.3-270.7)
== END ==
LOC: M PLALAB 12:21
PROVIDERS: ATTEND Family Medicine
DX: I10 Essential (primary) hypertension (principal); E53.8 Deficiency of other specified B group vitamins; R73.01 Impaired fasting glucose; Z86.39 Personal history of other endocrine, nutritional and metabolic disease

== ENCOUNTER → 2023-02-14 | Outpatient (REF) | payer MEDICARE, MEDICAID | LOC: M LAB REF 17:49 | PROVIDERS: ATTEND Physician Assistant Medical | DX: B34.9 Viral infection, unspecified (principal) ==

== ENCOUNTER → 2023-03-17 | Outpatient (REF) | payer MEDICARE, MEDICAID ==
[~2023-03-17] MED LIST changes: +IRBE75TA11 PO; -IRBE75TA4 PO
== END ==
LOC: M SFHCPLAZ 10:08
PROVIDERS: ATTEND Family Medicine
DX: I50.32 Chronic diastolic (congestive) heart failure (principal); R73.01 Impaired fasting glucose; E55.9 Vitamin D deficiency, unspecified; M10.9 Gout, unspecified

== ENCOUNTER → 2023-03-17 | Outpatient (CLI) | payer MEDICARE, MEDICAID ==
[2023-03-17 13:05] LABS: APPEARANCE, URINE HAZY (CLEAR); BACTERIA, URINE AUTO NEGATIVE (NEGATIVE); BILIRUBIN, URINE AUTO NEGATIVE (NEGATIVE); BLOOD, URINE BLOOD NEGATIVE (NEGATIVE); COLOR, URINE YELLOW (YELLOW); GLUCOSE, URINE (UA) AUTO NEGATIVE (NEGATIVE); KETONE, URINE AUTO NEGATIVE (NEGATIVE); LEUKOCYTE ESTERASE, URINE AUTO 3+ (NEGATIVE); MUCUS, URINE SMALL (NEGATIVE); NITRITE, URINE AUTO NEGATIVE (NEGATIVE); PROTEIN, URINE AUTO 1+ mg/dL (NEGATIVE); RBC, URINE AUTO 3 /HPF (0-3); SPECIFIC GRAVITY URINE AUTO 1.028 (1.002-1.035); SQUAMOUS EPITHELIAL CELL UR AU 4 /HPF (0-6); UROBILINOGEN, URINE AUTO 0.2 mg/dL (0.0-2.0); WBC, URINE AUTO TNTC /HPF (0-3)
[2023-03-17 13:40] LABS: INR 1.09; PROTHROMBIN TIME 13.8 SECONDS (12.5-14.5)
[2023-03-17 13:41] LABS: PARTIAL THROMBOPLASTIN TIME 27.8 SECONDS (24.8-34.2)
== END ==
LOC: M PLALAB 10:48
PROVIDERS: ATTEND Family Medicine
DX: K74.00 Hepatic fibrosis, unspecified (principal); R31.0 Gross hematuria; R73.01 Impaired fasting glucose

== ENCOUNTER → 2023-03-24 | Outpatient (REF) | payer MEDICARE, MEDICAID ==
[2023-03-24 14:00] LABS: AMORPHOUS SEDIMENT SMALL (NEGATIVE); APPEARANCE, URINE TURBID (CLEAR); BACTERIA, URINE AUTO 1+ (NEGATIVE); BILIRUBIN, URINE AUTO NEGATIVE (NEGATIVE); BLOOD, URINE BLOOD NEGATIVE (NEGATIVE); COLOR, URINE AMBER (YELLOW); GLUCOSE, URINE (UA) AUTO NEGATIVE (NEGATIVE); KETONE, URINE AUTO NEGATIVE (NEGATIVE); LEUKOCYTE ESTERASE, URINE AUTO 3+ (NEGATIVE); MUCUS, URINE LARGE (NEGATIVE); NITRITE, URINE AUTO NEGATIVE (NEGATIVE); PROTEIN, URINE AUTO 1+ mg/dL (NEGATIVE); RBC, URINE AUTO 0 /HPF (0-3); SPECIFIC GRAVITY URINE AUTO 1.026 (1.002-1.035); SQUAMOUS EPITHELIAL CELL UR AU 9 /HPF (0-6); UROBILINOGEN, URINE AUTO 0.2 mg/dL (0.0-2.0); WBC, URINE AUTO 97 /HPF (0-3)
== END ==
LOC: M SMT 13:10
PROVIDERS: ATTEND Urology
DX: R31.0 Gross hematuria (principal)

== ENCOUNTER → 2023-04-01 | Outpatient (REF) | payer MEDICARE ==
[2023-04-01 17:29] LABS: APPEARANCE, URINE HAZY (CLEAR); BACTERIA, URINE AUTO NEGATIVE (NEGATIVE); BILIRUBIN, URINE AUTO NEGATIVE (NEGATIVE); BLOOD, URINE BLOOD NEGATIVE (NEGATIVE); COLOR, URINE YELLOW (YELLOW); GLUCOSE, URINE (UA) AUTO NEGATIVE (NEGATIVE); KETONE, URINE AUTO NEGATIVE (NEGATIVE); LEUKOCYTE ESTERASE, URINE AUTO TRACE (NEGATIVE); MUCUS, URINE SMALL (NEGATIVE); NITRITE, URINE AUTO NEGATIVE (NEGATIVE); PROTEIN, URINE AUTO NEGATIVE (NEGATIVE); RBC, URINE AUTO 0 /HPF (0-3); SPECIFIC GRAVITY URINE AUTO 1.019 (1.002-1.035); SQUAMOUS EPITHELIAL CELL UR AU 1 /HPF (0-6); UROBILINOGEN, URINE AUTO 0.2 mg/dL (0.0-2.0); WBC, URINE AUTO 21 /HPF (0-3)
== END ==
LOC: M SMT 16:52
PROVIDERS: ATTEND Urology
DX: R31.0 Gross hematuria (principal)

== ENCOUNTER → 2023-07-23 | Outpatient (REF) | payer MEDICARE, MEDICAID | LOC: M SFHCPLAZ 13:45 | PROVIDERS: ATTEND Family Medicine | DX: I50.32 Chronic diastolic (congestive) heart failure (principal); R73.01 Impaired fasting glucose; E55.9 Vitamin D deficiency, unspecified; M10.9 Gout, unspecified ==

== ENCOUNTER → 2023-07-24 | Outpatient (CLI) | payer MEDICARE, MEDICAID ==
[2023-07-24 14:43] LABS: BASO % 0.6 % (0.0-1.0); EOS # 0.2 10^3/uL (0.0-0.5); HEMATOCRIT 38.5 % (36.0-47.0); HEMOGLOBIN 12.7 g/dl (12.0-15.5); LYMPH # 1.9 10^3/uL (1.5-5.0); LYMPH % 28.9 % (24.0-44.0); MEAN CORPUSCULAR HEMOGLOBIN 30.8 pg (27.0-33.0); MEAN CORPUSCULAR VOLUME 93.2 fl (80.0-96.0); MONO # 0.5 10^3/uL (0.0-0.8); NEUTROPHILS # 3.9 10^3/uL (1.5-8.5); NEUTROPHILS % 59.3 % (36.0-66.0); PLATELET COUNT, AUTOMATED 246 10^3/uL (150-450); RED BLOOD COUNT 4.13 10^6/uL (4.00-5.40); WHITE BLOOD COUNT 6.6 10^3/uL (4.0-10.0)
[2023-07-24 14:54] LABS: URIC ACID 4.5 MG/DL (3.1-7.8)
[2023-07-24 14:57] LABS: ALBUMIN 3.4 G/DL (3.2-5.2); ALKALINE PHOSPHATASE 118 U/L (46-116); ALT/SGPT 15 U/L (7.0-40); AST/SGOT 14 U/L (<34); BILIRUBIN,TOTAL 0.6 MG/DL (0.3-1.2); BLOOD UREA NITROGEN 19 MG/DL (9-23); CALCIUM LEVEL 9.3 MG/DL (8.3-10.6); CARBON DIOXIDE LEVEL 29 MMOL/L (20-31); CHLORIDE LEVEL 106 MMOL/L (98-107); GLOMERULAR FILTRATION RATE > 60.0 (>32); GLUCOSE, FASTING 116 MG/DL (74-106); POTASSIUM SERUM 3.9 MMOL/L (3.5-5.1); SODIUM LEVEL 144 MMOL/L (136-145); TOTAL PROTEIN 6.3 G/DL (5.7-8.2)
[2023-07-24 15:00] LABS: HEMOGLOBIN A1c 5.9 % (4.0-6.0)
[2023-07-24 15:02] LABS: FERRITIN 123.9 NG/ML (7.3-270.7)
[2023-07-24 15:03] LABS: TOTAL 25(OH) VITAMIN D 43.1 NG/ML (20.0-100.0)
[2023-07-24 15:36] LABS: PTH INTACT 60.1 PG/ML (18.5-88.0)
== END ==
LOC: M PLALAB 09:34
PROVIDERS: ATTEND Family Medicine
DX: I50.32 Chronic diastolic (congestive) heart failure (principal); R31.0 Gross hematuria; M10.9 Gout, unspecified; E55.9 Vitamin D deficiency, unspecified; R73.01 Impaired fasting glucose

== ENCOUNTER → 2023-07-27 | Outpatient (REF) | payer MEDICARE, MEDICAID ==
[2023-07-27 14:24] LABS: CREATININE, URINE 56.5 MG/DL; MAU/CREAT RATIO 8.8 MCG/MG (0.0-30.0)
== END ==
LOC: M SFHCPLAZ 13:31
PROVIDERS: ATTEND Family Medicine
DX: R73.01 Impaired fasting glucose (principal)

== ENCOUNTER → 2023-12-17 | Outpatient (CLI) | payer MEDICARE, MEDICAID | LOC: M WHC 14:34 | PROVIDERS: ATTEND Family Medicine | DX: Z12.31 Encounter for screening mammogram for malignant neoplasm of breast (principal); R92.313 Mammographic fatty tissue density, bilateral breasts; D18.01 Hemangioma of skin and subcutaneous tissue ==

== ENCOUNTER → 2023-12-24 | Outpatient (CLI) | payer MEDICARE, MEDICAID ==
[~2023-12-24] MED LIST changes: +ACET1TAB55 PO; +ATOR80TA59 PO; +CLOP75TA99 PO; +CYCL5TAB4 PO; +ELIQ5TAB PO; +HYDR12CA PO; +MELA3TAB7 PO; +PANT-23 PO; +TRAZ-252 PO
[2023-12-24 15:07] LABS: ALBUMIN 3.8 G/DL (3.2-5.2); ALKALINE PHOSPHATASE 120 U/L (35-104); ALT/SGPT 18 U/L (7.0-40); AST/SGOT 17 U/L (<34); BILIRUBIN,TOTAL 0.5 MG/DL (0.3-1.2); BLOOD UREA NITROGEN 17 MG/DL (9-23); CALCIUM LEVEL 9.8 MG/DL (8.3-10.6); CARBON DIOXIDE LEVEL 28 MMOL/L (20-31); CHLORIDE LEVEL 107 MMOL/L (98-107); CHOLESTEROL LEVEL 158 MG/DL (<200); CHOLESTEROL RISK RATIO 4.34 (<5); CREATININE FOR GFR 0.71 MG/DL (0.55-1.30); GLOMERULAR FILTRATION RATE > 60.0 (>32); GLUCOSE, FASTING 105 MG/DL (74-106); HDL CHOLESTEROL 36.4 MG/DL (>40); LDL CHOLESTEROL 86.4 MG/DL (<100); NON-HDL-C 121.6 MG/DL; POTASSIUM SERUM 4.2 MMOL/L (3.5-5.1); PTH INTACT 72.8 PG/ML (18.5-88.0); SODIUM LEVEL 141 MMOL/L (136-145); TOTAL PROTEIN 7.3 G/DL (5.7-8.2); TRIGLYCERIDES LEVEL 176 MG/DL (<150)
[2023-12-24 15:09] LABS: TOTAL 25(OH) VITAMIN D 42.1 NG/ML (20.0-100.0)
[2023-12-24 15:10] LABS: BASO % 0.4 % (0.0-1.0); EOS # 0.1 10^3/uL (0.0-0.5); EOS % 1.2 % (0.0-3.0); HEMATOCRIT 41.5 % (36.0-47.0); HEMOGLOBIN 13.4 g/dl (12.0-15.5); LYMPH # 2.2 10^3/uL (1.5-5.0); LYMPH % 26.4 % (24.0-44.0); MEAN CORPUSCULAR HEMOGLOBIN 30.5 pg (27.0-33.0); MEAN CORPUSCULAR HGB CONC 32.3 g/dl (32.0-36.5); MEAN CORPUSCULAR VOLUME 94.5 fl (80.0-96.0); MONO # 0.6 10^3/uL (0.0-0.8); MONO % 7.1 % (2.0-8.0); NEUTROPHILS # 5.2 10^3/uL (1.5-8.5); NEUTROPHILS % 64.4 % (36.0-66.0); PLATELET COUNT, AUTOMATED 251 10^3/uL (150-450); RED BLOOD COUNT 4.39 10^6/uL (4.00-5.40); WHITE BLOOD COUNT 8.1 10^3/uL (4.0-10.0)
[2023-12-24 15:47] LABS: HEMOGLOBIN A1c 5.9 % (4.0-6.0)
== END ==
LOC: M PLALAB 12:26
PROVIDERS: ATTEND Family Medicine
DX: E55.9 Vitamin D deficiency, unspecified (principal); I50.32 Chronic diastolic (congestive) heart failure; R73.01 Impaired fasting glucose

== ENCOUNTER 2024-01-05 11:09 | Inpatient (IN) | payer MEDICARE, MEDICAID ==
[~2024-01-05] VITALS: Ht 149.9 cm; Wt 92.1 kg
[~2024-01-05 11:09] MED LIST changes: -ACET1TAB55 PO; -ATOR80TA59 PO; -CLOP75TA99 PO; -CYCL5TAB4 PO; -ELIQ5TAB PO; -HYDR12CA PO; -MELA3TAB7 PO; -PANT-23 PO; -TRAZ-252 PO
[2024-01-05] MEDS ORDERED: MOM 30ML SUSPENSION UDC PO PRN (14:40)
[2024-01-05] MEDS ORDERED: ONDANSETRON 4MG TAB PO PRN (14:40)
[2024-01-05] MEDS ORDERED: FLEET ENEMA PR PRN (14:40)
[2024-01-05] MEDS ORDERED: MIRALAX *UNIT DOSE* 17GM PACKET PO PRN (14:40)
[2024-01-05] MEDS ORDERED: BISACODYL 10MG SUPP PR PRN (14:40)
[2024-01-05] MEDS ORDERED: BISACODYL 5MG TAB PO PRN (14:40)
[2024-01-05 15:00] VITALS: BP 160/67; TEMP 97.9; O2SAT 98
[2024-01-05] MEDS ORDERED: traZODone 25MG PER 1/2 TABLET PO PRN (15:10)
[2024-01-05] MEDS ORDERED: ATOR80TA59 PO (16:25)
[2024-01-05] MEDS ORDERED: CYCL5TAB4 PO (16:25)
[2024-01-05] MEDS ORDERED: PANT-23 PO (16:25)
[2024-01-05] MEDS ORDERED: ELIQ5TAB PO (16:35)
[2024-01-05] MEDS ORDERED: **hydrALAZINE HCL** 25 MG TAB PO PRN (16:35)
[2024-01-05] MEDS ORDERED: CLOP75TA99 PO (16:35)
[2024-01-05] MEDS ORDERED: TRAZ-252 PO (16:37)
[2024-01-05] MEDS ORDERED: MELA3TAB7 PO (16:37)
[2024-01-05] MEDS ORDERED: ACET1TAB55 PO (16:38)
[2024-01-05] MEDS ORDERED: HOME MED LIST COMPLETE! XX SCH (16:40)
[2024-01-05 20:00] VITALS: BP 161/72; TEMP 96.6; O2SAT 96
[2024-01-05] MEDS: SENNA 8.6 MG TAB (SENOKOT) PO SCH (20:07)
[2024-01-05] MEDS: CYCLOBENZAPRINE 10MG TABLET PO PRN (20:07)
[2024-01-05] MEDS: DOCUSATE SODIUM 100MG CAPSULE PO SCH (20:07)
[2024-01-05] MEDS: ATORVASTATIN 20 MG TAB PO SCH (20:07)
[2024-01-05] MEDS: RAMELTEON 8 MG TAB (ROZEREM) PO SCH (20:07)
[2024-01-05] MEDS: KETOCONAZOLE 2% CREAM TOP SCH (20:50)
[2024-01-05 21:00] VITALS: BP 152/66
[2024-01-06 04:00] VITALS: BP 121/58; TEMP 98; O2SAT 98
[2024-01-06 06:42] LABS: BASO % 0.4 % (0.0-1.0); EOS # 0.2 10^3/uL (0.0-0.5); EOS % 2.7 % (0.0-3.0); HEMATOCRIT 33.5 % (36.0-47.0); LYMPH # 1.7 10^3/uL (1.5-5.0); MEAN CORPUSCULAR HEMOGLOBIN 30.3 pg (27.0-33.0); MEAN CORPUSCULAR HGB CONC 32.8 g/dl (32.0-36.5); MEAN CORPUSCULAR VOLUME 92.3 fl (80.0-96.0); MONO # 0.7 10^3/uL (0.0-0.8); MONO % 8.4 % (2.0-8.0); NEUTROPHILS # 5.5 10^3/uL (1.5-8.5); PLATELET COUNT, AUTOMATED 247 10^3/uL (150-450); RED BLOOD COUNT 3.63 10^6/uL (4.00-5.40); WHITE BLOOD COUNT 8.2 10^3/uL (4.0-10.0)
[2024-01-06 07:05] LABS: BLOOD UREA NITROGEN 20 MG/DL (9-23); CALCIUM LEVEL 9.3 MG/DL (8.3-10.6); CARBON DIOXIDE LEVEL 28 MMOL/L (20-31); CHLORIDE LEVEL 108 MMOL/L (98-107); CREATININE FOR GFR 0.77 MG/DL (0.55-1.30); GLOMERULAR FILTRATION RATE > 60.0 (>32); GLUCOSE, FASTING 107 MG/DL (74-106); POTASSIUM SERUM 4.2 MMOL/L (3.5-5.1); SODIUM LEVEL 144 MMOL/L (136-145)
[2024-01-06] MEDS: APIXABAN 5 MG TAB (ELIQUIS) PO SCH (09:47)
[2024-01-06] MEDS: PANTOPRAZOLE 40MG TAB (PROTONIX) PO SCH (09:47)
[2024-01-06] MEDS: CYANOCOBALAMIN 500 MCG TAB PO SCH (09:48)
[2024-01-06] MEDS: CALCIUM/VITAMIN D 500 MG TAB PO SCH (09:48)
[2024-01-06] MEDS: FLUoxetine 20MG CAP PO SCH (09:48)
[2024-01-06] MEDS: hydroCHLOROthiazide 12.5 MG CAPSULE PO SCH (09:48)
[2024-01-06] MEDS: FLUTICASONE PROP 0.05% NASAL SPRAY 16 GM (FLONASE) NARES SCH (09:49)
[2024-01-06] MEDS: VITAMIN D 1,000 INTERNATIONAL UNITS TABLET PO SCH (09:49)
[2024-01-06] MEDS: allopurinoL 300 MG TAB PO SCH (09:49)
[2024-01-06] MEDS ORDERED: PILL CUTTER 1 EACH XX PRN (10:05)
[2024-01-06] MEDS: IRBESARTAN 150MG TAB PO SCH (10:07)
[2024-01-06 12:00] VITALS: BP 135/80; TEMP 97.6; O2SAT 100
[2024-01-06] MEDS: ANALGESIC BALM CRM 3OZ TOP SCH (12:54)
[2024-01-06 19:52] VITALS: BP 104/54; TEMP 97.2; O2SAT 93
[2024-01-07 04:24] VITALS: BP 107/49; TEMP 97; O2SAT 96
[2024-01-07 12:00] VITALS: BP 138/58; TEMP 98; O2SAT 99
[2024-01-07 20:00] VITALS: BP 126/58; TEMP 98.3; O2SAT 97
[2024-01-08 04:00] VITALS: BP 125/55; TEMP 97.7; O2SAT 95
[2024-01-08] MEDS: ACETAMINOPHEN 500 MG TAB PO PRN (09:31)
[2024-01-08 12:00] VITALS: BP 116/51; TEMP 97; O2SAT 95
[2024-01-08] MEDS ORDERED: KETOCONAZOLE 2% CREAM TOP PRN (12:25)
[2024-01-08 20:00] VITALS: BP 128/68; TEMP 98; O2SAT 98
[2024-01-09 04:00] VITALS: BP 135/86; TEMP 98.6; O2SAT 97
[2024-01-09 12:00] VITALS: BP 126/66; TEMP 98.2; O2SAT 96
[2024-01-09 20:00] VITALS: BP 149/60; TEMP 97.7; O2SAT 97
[2024-01-10 04:00] VITALS: BP 122/57; TEMP 97.7; O2SAT 97
[2024-01-10 12:00] VITALS: BP 134/51; TEMP 97; O2SAT 98
[2024-01-10 20:02] VITALS: BP 120/53; TEMP 97.4; O2SAT 97
[2024-01-11 04:42] VITALS: BP 111/56; TEMP 96.9; O2SAT 93
[2024-01-11 12:00] VITALS: BP 120/58; TEMP 97.5; O2SAT 99
[2024-01-11] MEDS ORDERED: ELIQ5TAB PO (16:45)
[2024-01-11] MEDS ORDERED: CYCL5TAB4 PO (16:45)
[2024-01-11] MEDS ORDERED: IRBE75TA11 PO (16:45)
[2024-01-11] MEDS ORDERED: TRAZ-252 PO (16:45)
[2024-01-11] MEDS ORDERED: ATOR80TA59 PO (16:45)
[2024-01-11] MEDS ORDERED: HYDR12CA PO (16:45)
[2024-01-11 19:39] VITALS: BP 123/79; TEMP 96.9; O2SAT 97
[2024-01-12 04:45] VITALS: BP 114/51; TEMP 97.6; O2SAT 92
[2024-01-12 08:17] VITALS: BP 120/60
[2024-01-12 08:19] VITALS: BP 120/60
== END 2024-01-12 12:30 | disposition home or self-care (01) | DRG 64 ==
LOC: M ED INP 14:52 → UNDOADMIN 14:52 → M PM&R 14:57
PROVIDERS: ADMIT Physical Medicine & Rehabilitation; ATTEND Physical Medicine & Rehabilitation
DX: I63.511 Cerebral infarction due to unspecified occlusion or stenosis of right middle cerebral artery (principal); I61.4 Nontraumatic intracerebral hemorrhage in cerebellum; G81.94 Hemiplegia, unspecified affecting left nondominant side; I10 Essential (primary) hypertension; E78.5 Hyperlipidemia, unspecified; M10.9 Gout, unspecified; F39 Unspecified mood [affective] disorder; R47.81 Slurred speech; I48.0 Paroxysmal atrial fibrillation; R33.9 Retention of urine, unspecified; I44.1 Atrioventricular block, second degree; M62.838 Other muscle spasm; Z74.1 Need for assistance with personal care; Z74.09 Other reduced mobility; G47.33 Obstructive sleep apnea (adult) (pediatric); M19.90 Unspecified osteoarthritis, unspecified site; Z96.651 Presence of right artificial knee joint; E66.01 Morbid (severe) obesity due to excess calories; R21 Rash and other nonspecific skin eruption; K21.9 Gastro-esophageal reflux disease without esophagitis; G47.00 Insomnia, unspecified; Z79.01 Long term (current) use of anticoagulants; Z79.82 Long term (current) use of aspirin; Z79.899 Other long term (current) drug therapy; Z90.49 Acquired absence of other specified parts of digestive tract; Z90.79 Acquired absence of other genital organ(s)

== ENCOUNTER → 2024-02-01 | Outpatient (CLI) | payer MEDICARE, MEDICAID ==
[~2024-02-01] MED LIST changes: +ACET1TAB55 PO; +ATOR80TA59 PO; +CLOP75TA99 PO; +CYCL5TAB4 PO; +ELIQ5TAB PO; +HYDR12CA PO; +MELA3TAB7 PO; +PANT-23 PO; +TRAZ-252 PO
[2024-02-01 13:21] LABS: BASO % 0.5 % (0.0-1.0); EOS # 0.3 10^3/uL (0.0-0.5); EOS % 4.4 % (0.0-3.0); HEMATOCRIT 39.1 % (36.0-47.0); HEMOGLOBIN 12.6 g/dl (12.0-15.5); LYMPH # 2.1 10^3/uL (1.5-5.0); LYMPH % 34.1 % (24.0-44.0); MEAN CORPUSCULAR HEMOGLOBIN 30.1 pg (27.0-33.0); MEAN CORPUSCULAR HGB CONC 32.2 g/dl (32.0-36.5); MEAN CORPUSCULAR VOLUME 93.5 fl (80.0-96.0); MONO # 0.6 10^3/uL (0.0-0.8); MONO % 9.5 % (2.0-8.0); NEUTROPHILS # 3.2 10^3/uL (1.5-8.5); NEUTROPHILS % 51.2 % (36.0-66.0); PLATELET COUNT, AUTOMATED 234 10^3/uL (150-450); RED BLOOD COUNT 4.18 10^6/uL (4.00-5.40); WHITE BLOOD COUNT 6.2 10^3/uL (4.0-10.0)
[2024-02-01 13:56] LABS: FERRITIN 179.6 NG/ML (7.3-270.7); TOTAL 25(OH) VITAMIN D 45.5 NG/ML (20.0-100.0)
[2024-02-01 13:57] LABS: ALBUMIN 3.5 G/DL (3.2-5.2); BILIRUBIN,TOTAL 0.6 MG/DL (0.3-1.2); CALCIUM LEVEL 9.5 MG/DL (8.3-10.6); CHOLESTEROL RISK RATIO 3.57 (<5); CREATININE FOR GFR 0.95 MG/DL (0.55-1.30); GLOMERULAR FILTRATION RATE 59.7 (>32); HDL CHOLESTEROL 31.3 MG/DL (>40); LDL CHOLESTEROL 55.9 MG/DL (<100); NON-HDL-C 80.7 MG/DL; POTASSIUM SERUM 3.9 MMOL/L (3.5-5.1); TOTAL PROTEIN 6.7 G/DL (5.7-8.2)
[2024-02-01 21:30] LABS: PTH INTACT 59.4 PG/ML (18.5-88.0)
== END ==
LOC: M PLALAB 09:08
PROVIDERS: ATTEND Family Medicine
DX: I50.32 Chronic diastolic (congestive) heart failure (principal); R73.01 Impaired fasting glucose; E55.9 Vitamin D deficiency, unspecified; I63.411 Cerebral infarction due to embolism of right middle cerebral artery

== ENCOUNTER → 2024-04-21 | Outpatient (CLI) | payer MEDICARE, MEDICAID ==
[2024-04-21 18:49] LABS: BASO % 0.5 % (0.0-1.0); EOS # 0.2 10^3/uL (0.0-0.5); EOS % 2.4 % (0.0-3.0); HEMATOCRIT 40.5 % (36.0-47.0); HEMOGLOBIN 13.3 g/dl (12.0-15.5); LYMPH # 2.5 10^3/uL (1.5-5.0); MEAN CORPUSCULAR HEMOGLOBIN 30.8 pg (27.0-33.0); MEAN CORPUSCULAR HGB CONC 32.8 g/dl (32.0-36.5); MEAN CORPUSCULAR VOLUME 93.8 fl (80.0-96.0); MONO # 0.7 10^3/uL (0.0-0.8); MONO % 8.2 % (2.0-8.0); NEUTROPHILS # 5.1 10^3/uL (1.5-8.5); NEUTROPHILS % 59.6 % (36.0-66.0); PLATELET COUNT, AUTOMATED 309 10^3/uL (150-450); RED BLOOD COUNT 4.32 10^6/uL (4.00-5.40); WHITE BLOOD COUNT 8.6 10^3/uL (4.0-10.0)
[2024-04-21 19:18] LABS: IRON (FE) 50 UG/DL (50-170)
[2024-04-21 19:19] LABS: ALBUMIN 3.7 G/DL (3.2-5.2); ALKALINE PHOSPHATASE 143 U/L (35-104); ALT/SGPT 22 U/L (7.0-40); AST/SGOT 19 U/L (<34); BILIRUBIN,TOTAL 0.3 MG/DL (0.3-1.2); BLOOD UREA NITROGEN 15 MG/DL (9-23); CALCIUM LEVEL 9.5 MG/DL (8.3-10.6); CARBON DIOXIDE LEVEL 31 MMOL/L (20-31); CHLORIDE LEVEL 106 MMOL/L (98-107); CHOLESTEROL LEVEL 159 MG/DL (<200); CHOLESTEROL RISK RATIO 4.02 (<5); CPK CREATINE PHOSPHOKINASE 86 U/L (34-145); CREATININE FOR GFR 0.76 MG/DL (0.55-1.30); GLOMERULAR FILTRATION RATE > 60.0 (>32); GLUCOSE, FASTING 88 MG/DL (74-106); HDL CHOLESTEROL 39.5 MG/DL (>40); LDL CHOLESTEROL 73.3 MG/DL (<100); MAGNESIUM LEVEL 1.9 MG/DL (1.8-2.4); NON-HDL-C 119.5 MG/DL; PERCENT SATURATION 16.3 % (13.2-45.0); POTASSIUM SERUM 3.9 MMOL/L (3.5-5.1); SODIUM LEVEL 145 MMOL/L (136-145); TOTAL IRON BINDING CAPACITY 307 UG/DL (250-425); TOTAL PROTEIN 7.3 G/DL (5.7-8.2); TRIGLYCERIDES LEVEL 231 MG/DL (<150)
[2024-04-21 19:20] LABS: FERRITIN 130.9 NG/ML (7.3-270.7); FREE T4 0.94 NG/DL (0.89-1.76); THYROID STIMULATING HORMONE 2.358 uIU/ML (0.55-4.78); VITAMIN B12 LEVEL 904 PG/ML (211-911)
== END ==
LOC: M PLALAB 15:20
PROVIDERS: ATTEND Family Medicine
DX: I50.32 Chronic diastolic (congestive) heart failure (principal); I63.411 Cerebral infarction due to embolism of right middle cerebral artery; R73.01 Impaired fasting glucose; E78.2 Mixed hyperlipidemia; E53.8 Deficiency of other specified B group vitamins

== ENCOUNTER → 2024-09-13 | Outpatient (REF) | payer MEDICARE, MEDICAID ==
[~2024-09-13] MED LIST changes: +HYDR12.510 PO; -HYDR12CA PO; -MELA3TAB7 PO; +MELA3TAB78 PO; -PROZ20CA11 PO; +PROZ20CA12 PO
== END ==
LOC: M SFHCPLAZ 15:07
PROVIDERS: ATTEND Family Medicine
DX: Z53.9 Procedure and treatment not carried out, unspecified reason (principal)

== ENCOUNTER → 2024-09-13 | Outpatient (CLI) | payer MEDICARE, MEDICAID ==
[2024-09-13 17:24] LABS: BASO # 0.0 10^3/uL (0.0-0.2); BASO % 0.5 % (0.0-1.0); EOS # 0.1 10^3/uL (0.0-0.5); EOS % 1.2 % (0.0-3.0); LYMPH # 2.1 10^3/uL (1.5-5.0); LYMPH % 24.1 % (24.0-44.0); MONO # 0.6 10^3/uL (0.0-0.8); MONO % 7.3 % (2.0-8.0); NEUTROPHILS # 5.7 10^3/uL (1.5-8.5); NEUTROPHILS % 66.5 % (36.0-66.0); PLATELET COUNT, AUTOMATED 263 10^3/uL (150-450)
[2024-09-13 17:44] LABS: ALT/SGPT 25.0 U/L (7.0-40); AST/SGOT 25.0 U/L (<34); CALCIUM LEVEL 9.1 MG/DL (8.3-10.6); CARBON DIOXIDE LEVEL 29.0 MMOL/L (20-31); CHLORIDE LEVEL 104.0 MMOL/L (98-107); CREATININE FOR GFR 0.87 MG/DL (0.55-1.30); GLOMERULAR FILTRATION RATE 65.3 (>32); MAGNESIUM LEVEL 2.0 MG/DL (1.8-2.4); POTASSIUM SERUM 4.2 MMOL/L (3.5-5.1); PTH INTACT 92.0 PG/ML (18.5-88.0); SODIUM LEVEL 142.0 MMOL/L (136-145)
[2024-09-13 17:49] LABS: TOTAL 25(OH) VITAMIN D 61.8 NG/ML (20.0-100.0)
[2024-09-13 18:26] LABS: ESTIMATED AVERAGE GLUCOSE 126.0 MG/DL (60-110)
== END ==
LOC: M PLALAB 15:26
PROVIDERS: ATTEND Family Medicine
DX: E55.9 Vitamin D deficiency, unspecified (principal); D50.9 Iron deficiency anemia, unspecified

== ENCOUNTER → 2024-10-07 | Outpatient (REF) | payer MEDICARE, MEDICAID ==
[2024-10-07 13:58] LABS: APPEARANCE, URINE HAZY (CLEAR); BACTERIA, URINE AUTO 1+ (NEGATIVE); BILIRUBIN, URINE AUTO NEGATIVE (NEGATIVE); BLOOD, URINE BLOOD NEGATIVE (NEGATIVE); GLUCOSE, URINE (UA) AUTO NEGATIVE (NEGATIVE); KETONE, URINE AUTO NEGATIVE (NEGATIVE); LEUKOCYTE ESTERASE, URINE AUTO 1+ (NEGATIVE); NITRITE, URINE AUTO NEGATIVE (NEGATIVE); PROTEIN, URINE AUTO NEGATIVE (NEGATIVE); RBC, URINE AUTO 3 /HPF (0-3); SPECIFIC GRAVITY URINE AUTO 1.015 (1.002-1.035); SQUAMOUS EPITHELIAL CELL UR AU 2 /HPF (0-6); UROBILINOGEN, URINE AUTO 0.2 mg/dL (0.0-2.0); WBC, URINE AUTO 25 /HPF (0-3)
== END ==
LOC: M SFHCPLAZ 12:54
DX: R41.3 Other amnesia (principal)

== ENCOUNTER → 2025-01-23 | Outpatient (CLI) | payer MEDICARE, MEDICAID ==
[~2025-01-23] MED LIST changes: -PROZ20CA12 PO; +PROZ20CA25 PO
[2025-01-23 15:33] LABS: BASO # 0.0 10^3/uL (0.0-0.2); BASO % 0.4 % (0.0-1.0); EOS # 0.1 10^3/uL (0.0-0.5); EOS % 1.0 % (0.0-3.0); LYMPH # 2.3 10^3/uL (1.5-5.0); LYMPH % 25.1 % (24.0-44.0); MONO # 0.6 10^3/uL (0.0-0.8); MONO % 6.9 % (2.0-8.0); NEUTROPHILS # 6.0 10^3/uL (1.5-8.5); NEUTROPHILS % 66.3 % (36.0-66.0); PLATELET COUNT, AUTOMATED 263 10^3/uL (150-450)
[2025-01-23 15:44] LABS: INR 1.33
[2025-01-23 16:00] LABS: ESTIMATED AVERAGE GLUCOSE 128.0 MG/DL (60-110)
[2025-01-23 16:11] LABS: FREE T4 1.07 NG/DL (0.89-1.76)
[2025-01-23 16:16] LABS: ALT/SGPT 21.0 U/L (7.0-40); AST/SGOT 23.0 U/L (<34); CALCIUM LEVEL 9.7 MG/DL (8.3-10.6); CARBON DIOXIDE LEVEL 30.0 MMOL/L (20-31); CHLORIDE LEVEL 101.0 MMOL/L (98-107); CREATININE FOR GFR 0.88 MG/DL (0.55-1.30); GLOMERULAR FILTRATION RATE 64.4 (>32); POTASSIUM SERUM 4.2 MMOL/L (3.5-5.1); SODIUM LEVEL 141.0 MMOL/L (136-145); VITAMIN B12 LEVEL 702.0 PG/ML (211-911)
== END ==
LOC: M PLALAB 13:59
PROVIDERS: ATTEND Family Medicine
DX: I50.32 Chronic diastolic (congestive) heart failure (principal); E78.2 Mixed hyperlipidemia; E53.8 Deficiency of other specified B group vitamins; K74.00 Hepatic fibrosis, unspecified